=== PATIENT | female | born 1970 | race African-American/Black ===

== ENCOUNTER 2016-12-13 22:11 | Inpatient (IN) | payer OTHER, SELFPAY ==
[2016-12-13] MEDS ORDERED: Ondansetron HCl/PF 4 MG/2 ML Vial ONE (23:25)
[2016-12-14] MEDS ORDERED: Dextrose 50% Abboject 50 ML SYRINGE SLOW IVP PRN (00:24)
[2016-12-14] MEDS ORDERED: Promethazine HCl 25 MG/ML VIAL IM/IV PRN (00:24)
[2016-12-14] MEDS ORDERED: Guaifenesin DM 100-10/5 ML UDCUP PO PRN (00:24)
[2016-12-14] MEDS ORDERED: Dextrose 5% in Water 1,000 ML IV PRN (00:24)
[2016-12-14] MEDS ORDERED: Acetaminophen 325 MG TAB PO PRN (00:24)
[2016-12-14] MEDS ORDERED: Sodium Chloride 0.9% 1,000 ML IV SCH (00:30)
[2016-12-14 00:49] LABS: Acetaminophen Less than 6.0 mcg/mL (10.0-30.0); Salicylate Less than 8.0 mg/dL (15.0-30.0)
--- NOTE | 2016-12-14 01:22 | HP ---
REASON FOR ADMISSION: Epigastric pain, intractable nausea, and vomiting. HISTORY OF PRESENT ILLNESS: The patient gives history of waking up with epigastric pain. She felt nauseated and soon started to throw up multiple times. She tried taking her medication but threw up. She also developed palpitations. She went to [facility] from where she was transferred here. The patient states she has had an upper endoscopy done 2 or 3 months back here and did not have any ulcers then. The epigastric pain is 10/ 10 in intensity. There is no radiation of this pain. She has vomited nearly 10 times per patient, the last few times have been bilious. No complaints of constipation, fever, urinary symptoms including urgency or frequency. No complaints of PND or orthopnea. Has not had any fever, cough, or expectoration. PAST MEDICAL/SURGICAL HISTORY: History of hypertension, diabetes mellitus type 2, prior history of pancreatitis, GERD. She has diabetes from last 17 years, C- section x3, has had stent placed to RCA in 02/[address] Ríos x2. CURRENT MEDICATIONS: The patient is on aspirin 81 mg p.o. daily, Plavix 75 mg p.o. daily, Coreg 6.25 mg p.o. twice daily, lisinopril 10 mg p.o. daily, clonidine patch and tablets, Lantus 50 units subcutaneously at bedtime, and Humalog sliding scale. ALLERGIES: No known drug allergies. PERSONAL HISTORY: Smokes marijuana for her chronic nauseating feeling per patient. She quit smoking. Does not abuse alcohol. No other drugs per the patient. FAMILY HISTORY: Mother has history of heart failure. Father of lymphoma and its complications at the age of 64 years. REVIEW OF SYSTEMS: The following complete review of systems was negative, unless otherwise mentioned in the HPI or below: Constitutional: Weight loss or gain, ability to conduct usual activities. Skin: Rash, itching. Eyes: Double vision, pain. ENT/Mouth: Nose bleeding, neck stiffness, pain, tenderness. Cardiovascular: Palpitations, dyspnea on exertion, orthopnea. Respiratory: Shortness of breath, wheezing, cough, hemoptysis, fever or night sweats. Gastrointestinal: Poor appetite, abdominal pain, heartburn, nausea, vomiting, constipation, or diarrhea. Genitourinary: Urgency, frequency, dysuria, nocturia. Musculoskeletal: Pain, swelling. Neurologic/Psychiatric: Anxiety, depression. Allergy/Immunologic: Skin rash, bleeding tendency. PHYSICAL EXAMINATION: GENERAL: The patient is a 46-year-old female who is currently in distress from epigastric pain. She has received multiple doses of morphine and Toradol both in [facility] here. VITAL SIGNS: Blood pressure 146/94, pulse 100 per minute, respiratory rate 18 per minute, temperature 98.6 degrees Fahrenheit, saturating 97% on room air. NECK: Supple. No elevated JVD. HEENT: Eyes, Extraocular muscles intact. Pupils reacting to light. Oral cavity, mucous membranes are moist. No exudates or congestion. CARDIOVASCULAR SYSTEM: S1, S2 heard. Regular rhythm. RESPIRATORY SYSTEM: Air entry 2+ bilateral. No rales or rhonchi. ABDOMEN: Soft. Bowel sounds heard. There is epigastric tenderness. No rebound. Mostly, patient has voluntary guarding for deep palpation. EXTREMITIES: No peripheral edema or calf tenderness. VASCULAR SYSTEM: Peripheral pulses 1+ bilateral. No ischemic ulcerations or gangrene. CENTRAL NERVOUS SYSTEM: No gross focal deficits seen. The patient is alert, awake, oriented x3. PSYCHIATRIC SYSTEM: The patient's mood is euthymic. No hallucinations or delusions. LABORATORY DATA AND X-RAY FINDINGS: Please note all her labs were done at [facility]. Electrolytes are stable. BUN 9, creatinine 1.0, glucose 432. Albumin 4.4, lipase is 38, amylase 50. First set of troponin is 0.02. Second set done here on arrival was 0.04, CK-MB 3.0. H\T\H 13 and 39. EKG done shows sinus tachycardia at 103 beats per minute. There are signs of LVH. CLINICAL IMPRESSION AND PLAN: The patient will be admitted to telemetry with intractable nausea, vomiting, and epigastric pain with indeterminate troponin and prior history of 2 stents placed to right coronary artery. We will also obtain a urine drug screen in view of her history of chronic marijuana abuse for nausea per patient. We will continue her on aspirin, Plavix, Coreg, small dose of lisinopril, and clonidine as before. She will be on nitroglycerin paste half inch q. 8 hourly. We will obtain an echo with 2D Doppler and CT of the abdomen and pelvis without contrast. We will consult Dr. Ríos, her microsoft exchange architect, during the stay here. She will be on normal saline at 70 mL per hour. We will keep her n.p.o. until her nausea and vomiting resolve. She will be on Pepcid 20 mg IV q. 12 hourly. Please note the patient has had recent upper endoscopy done in 08/[address] Burak Bess. There is patchy gastritis seen in the fundus and biopsies have not shown Helicobacter pylori organism. We will continue to closely monitor her on telemetry. Please note the patient has had multiple narcotics given in the ER and needs to be closely monitored for respiratory depression. MTDD
[2016-12-14] MEDS: HumaLOG 300 UNITS/3 ML VIAL SC PRN ×3 (01:31→18:22)
[2016-12-14 02:49] LABS: Troponin I 0.034 ng/mL (< 0.028)
[2016-12-14] MEDS: Ondansetron HCl/PF 4 MG/2 ML Vial IVP PRN ×3 (05:22→18:30)
[2016-12-14] MEDS: traMADol HCl 50 MG TAB PO PRN ×3 (05:22→18:30)
[2016-12-14] MEDS: Nitroglycerin 2% Ointment 1 INCH/1 GM Packet TOP SCH ×3 (05:25→21:01)
[2016-12-14 06:07] LABS: #Basophils 0.1 thou/uL (0.0-0.2); #Lymphocytes 2.2 thou/uL (1.20-3.40); #Neutrophils 8.2 thou/uL (1.40-6.50); %Basophils 0.7 % (0.0-1.0); %Eosinophils 0.1 % (0.0-10.0); %Lymphocytes 19.2 % (21.0-51.0); %Monocytes 8.3 % (0.0-10.0); Hematocrit 37.5 % (36.0-47.0); Mean Platelet Volume 7.8 fL (7.4-10.4); Red Blood Cell (RBC) Count 4.62 mill/uL (4.20-5.40); White Blood Cell (WBC) Count 11.4 thou/uL (4.8-10.8)
[2016-12-14 06:27] LABS: Anion Gap 15 mmol/L (10-20); BUN (Urea Nitrogen) 19 mg/dL (7.0-18.7); Calc. Creatinine Clearance 53 mL/min (70-130); Carbon Dioxide 26 mmol/L (22-29); Chloride 94 mmol/L (98-107); Cholesterol 235 mg/dl (< 200 Desired); Estimated GFR-MDRD 38; LDL Cholesterol, Calculated 152 mg/dL
--- NOTE | 2016-12-14 08:21 | CT ---
CT OF THE ABODMEN AND PELVIS WITHOUT IV CONTRAST: Date: 12/14/16 INDICATION: Abdominal pain with a history of tubal ligation and . COMPARISON: Prior exam dated 08/09/16. FINDINGS: The lung bases are clear. Unopacified liver, pancreas, spleen, and adrenal glands are unremarkable. No definite renal or urete ral calculus evident. A small left mid renal cyst is stable. No free fluid or enlarged lymph nodes are evident. There are vascular calcifications noted involving the abdominal aorta. Unopacified uterus, bladder, rectum, and perirectal soft tissues are unremarkable. There are a few scattered diverticula involving the colon without evidence of active diverticulitis. There is a normal appendix in the right lower quadrant. There is an inflammation infiltration invol ving the subcutaneous fat overlying the lower abdomen, likely related to subcu injection. No definite acute osseous abnormality is evident. There is scattered degenerative and osteoarthritic change. IMPRESSION: No acute abnormality. POS: [facility]
[2016-12-14] MEDS ORDERED: FLU VACC QS2017-18 36 mo. & older 0.5 ML SYRINGE IM ONE (09:00)
[2016-12-14] MEDS: Enoxaparin Sodium 40 MG/0.4 ML SYRINGE SC SCH (09:32)
[2016-12-14] MEDS: Insulin Detemir 100 UNITS/ML 15 UNITS in Pre-Filled Syringe 1 EACH SC SCH ×2 (09:33→20:49)
[2016-12-14] MEDS: Docusate 100 MG CAP PO SCH ×2 (09:35→20:48)
[2016-12-14] MEDS: Lisinopril 10 MG TAB PO SCH (09:35)
[2016-12-14] MEDS: Carvedilol 6.25 MG TAB PO SCH ×2 (09:38→20:47)
[2016-12-14] MEDS: Clopidogrel Bisulfate 75 MG TAB PO SCH (09:38)
[2016-12-14] MEDS: Aspirin 325 MG TAB PO SCH (09:39)
[2016-12-14] MEDS: cloNIDine HCl 0.1 MG TAB PO SCH ×2 (09:39→20:47)
[2016-12-14] MEDS: Famotidine/PF 20 mg/2ml Vial SLOW IVP SCH ×2 (10:01→21:02)
[2016-12-14 12:22] LABS: Anion Gap 14 mmol/L (10-20); BUN (Urea Nitrogen) 22 mg/dL (7.0-18.7); Calc. Creatinine Clearance 56 mL/min (70-130); Calcium 8.9 mg/dL (7.8-10.44); Carbon Dioxide 26 mmol/L (22-29); Chloride 94 mmol/L (98-107); Estimated GFR-MDRD 40
--- NOTE | 2016-12-14 13:56 | PDOC.PN ---
- Subjective Encounter Start Date: 12/14/16 Encounter Start Time: 13:45 Subjective: f/u epigastric pain and N/V. No emesis in 24h. Planned heart cath -: cancelled today due to elevated creatinine. No new complaints. - Objective Resuscitation Status: Resuscitation Status FULL:Full Resuscitation MAR Reviewed: Yes Vital Signs & Weight: Vital Signs (12 hours) Temp Pulse Resp BP BP Pulse Ox 12/14/16 09:39 136/85 12/14/16 09:38 136/85 12/14/16 09:35 136/85 12/14/16 08:25 98.3 F 88 18 136/85 98 12/14/16 08:00 98.2 F 88 20 98 12/14/16 04:00 98.2 F 88 20 143/82 H 98 Weight Weight 182 lb 4.8 oz I&O: 12/13/16 12/14/16 12/15/16 06:59 06:59 06:59 Intake Total 1150 Output Total 50 Balance 1100 Result Diagrams: 12/14/16 05:19 12/14/16 11:50 Additional Labs: Accuchecks 12/14/16 12/14/16 05:21 01:14 POC Glucose 327 H 410 H Laboratory Tests 12/13/16 12/13/16 12/14/16 23:07 23:07 02:05 Sodium Potassium BUN Creatinine Troponin I 0.040 H 0.034 H Triglycerides Cholesterol LDL Cholesterol, Calc HDL Cholesterol Salicylates Less than 8.0 L Acetaminophen Less than 6.0 L Plasma Alcohol Less than 10 12/14/16 05:19 Sodium 132 L Potassium 3.2 L BUN 19 H Creatinine 1.76 H Troponin I Triglycerides 183 H Cholesterol 235 H LDL Cholesterol, Calc 152 HDL Cholesterol 46 Salicylates Acetaminophen Plasma Alcohol Radiology Reviewed by me: Yes (CT A/P - negative) EKG Reviewed by me: Yes (Tele - SR) Phys Exam - Physical Examination Constitutional: NAD HEENT: PERRLA, oral pharynx no lesions Neck: no JVD, supple Respiratory: no wheezing, clear to auscultation bilateral Cardiovascular: RRR Gastrointestinal: soft, non-tender, no distention, positive bowel sounds Musculoskeletal: no edema, pulses present Neurological: normal sensation, moves all 4 limbs Psychiatric: A&O x 3 Skin: normal turgor, cap refill <2 seconds Dx/Plan - Plan DVT proph w/SCDs Stable overall -: continue IVF's -: Avoid nephrotoxic meds -: Plan on LHC in am * N/V - resolving, continue supportive mgmt, IVF's, likely drug-induced vs component of gastroparesis * Elevated Troponin I - repeat LHC when creatinine improved and can tolerate contrast study * Cannabis Use - bereavement counselor regarding risk of use and potentially creating more nause and emesis * CAD s/p stents x 2 - stable overall, see above * LETY - avoid nephrotoxic meds and contrast media, continue IVF's * DM II - ISS, ADA, resume home medication regimen * AM lab: BMP * 2D Echo pending
--- NOTE | 2016-12-14 15:47 | CON ---
DATE OF CONSULTATION: 12/14/2016 REASON FOR CONSULTATION: Nausea, vomiting, abdominal pain. REFERRING PROVIDER: Dr. Fiorella Garces. HISTORY OF PRESENT ILLNESS: Ms. Walter is a 46-year-old woman who I have seen and evaluated in the ast. She underwent stent placement in 02/2016. At that time, she is also complaining of nausea, vo miting, and abdominal discomfort. Per her history, she states she did well after stent implantation without symptoms, although after reviewing her records, it appeared she had readmission one week la [facility] for similar symptoms. She also had similar symptoms in June and July of 2016. She states her abdomen is pain to touch. She states she had abdominal pain followed by nausea and v omiting. She underwent CT scan of the abdomen today that was unremarkable. PAST MEDICAL HISTORY: As above including pancreatitis, acid reflux, diabetes mellitus. HOME MEDICATIONS: Include aspirin, Plavix, clonidine, lisinopril, Coreg, Lantus. ALLERGIES: None. FAMILY HISTORY: Negative for CAD. REVIEW OF SYSTEMS: Ten-point review of systems is reviewed and as above, otherwise negative. PHYSICAL EXAMINATION: GENERAL: Patient is a pleasant male/female who is in no acute distress. The patient appears her st ated age. VITAL SIGNS: Blood pressure 136/85, pulse 88, temperature 98.3. NEUROLOGIC: The patient is alert and oriented times 3 with no focal neurologic deficits. HEENT: Sclerae without icterus. Mouth has moist mucous membranes with normal pallor. NECK: No JVD. Carotid upstroke brisk. No bruits bilaterally. LUNGS: Clear to auscultation with unlabored respirations. BACK: No scoliosis or kyphosis. CARDIAC: Regular rate and rhythm with normal S1 and S2. No S3 or S4 noted. No significant rubs, m urmurs, thrills, or gallops noted throughout the precordium. PMI is not displaced. There is no par asternal heave. ABDOMEN: Soft, nontender, nondistended. No peritoneal signs present. No hepatosplenomegaly. No a bnormal striae. EXTREMITIES: 2+ femoral and 2+ dorsalis pedis pulses. No cyanosis, clubbing, or edema. SKIN: No gross abnormalities. PERTINENT LABORATORY AND DIAGNOSTIC DATA: Peak troponin 0.04, creatinine 1.76. GFR 38. EKG normal sinus rhythm, normal EKG. IMPRESSION: 1. Nausea, vomiting, abdominal pain. 2. Coronary artery disease. 3. Status post stent placement. RECOMMENDATIONS: Ms. Walter's previous history is somewhat difficult and complicated to ascertain. She did have a stent placed with similar symptoms back in February. She has had several admissions for similar symptoms since. Upon trying to differentiate between repeat angiography versus noninvas basilio stress study, it appears her troponin in 02/2016 was at 0.4, which is felt to be abnormal. Mult iple admissions, since her troponin has been in the indeterminate range. Her creatinine is also harjeet vated, likely due to volume contraction. At this point, we would recommend a noninvasive stress kaleb dy to assess for any areas of ischemia. I also discussed the option of coronary angiography with po ssible PCI. I discussed the procedure in full detail with Ms. Walter. I discussed the procedure in full detail with the patient. The risks of the procedure were also dis cussed. The risks of the procedure include but are not limited to the following: , stroke, LA , need for emergency surgery, loss of limb, bleeding, and infection, as well as a reaction to the dy e causing kidney failure and needing long-term dialysis. I also discussed the risks of PCI to inclu de all of the above including coronary dissection and perforation in addition to acute stent thrombo sis and restenosis. All questions were answered. Given the above, she has decided to proceed with a noninvasive stress study. Further recommendations pending the above.
[2016-12-14] MEDS: Sodium Chloride 0.9% 1,000 ML IV SCH ×2 (18:22)
[2016-12-14 21:46] LABS: Amphetamine Not Detected (NotDetected); Methadone Not Detected (NotDetected); Methamphetamine Not Detected (NotDetected)
[2016-12-15] MEDS: Ondansetron HCl/PF 4 MG/2 ML Vial IVP PRN ×2 (01:07→06:35)
[2016-12-15] MEDS: Sodium Chloride 0.9% 1,000 ML IV SCH ×4 (01:08→21:48)
[2016-12-15] MEDS: traMADol HCl 50 MG TAB PO PRN ×3 (01:08→21:27)
[2016-12-15] MEDS: Nitroglycerin 2% Ointment 1 INCH/1 GM Packet TOP SCH ×3 (06:36→21:31)
[2016-12-15] MEDS: Famotidine/PF 20 mg/2ml Vial SLOW IVP SCH ×2 (09:00→21:30)
[2016-12-15] MEDS: Lisinopril 10 MG TAB PO SCH (09:56)
[2016-12-15] MEDS: cloNIDine HCl 0.1 MG TAB PO SCH ×2 (09:59→21:30)
[2016-12-15] MEDS: Docusate 100 MG CAP PO SCH ×2 (09:59→21:30)
[2016-12-15] MEDS: Insulin Detemir 100 UNITS/ML 15 UNITS in Pre-Filled Syringe 1 EACH SC SCH ×2 (10:00→21:31)
[2016-12-15] MEDS: HumaLOG 300 UNITS/3 ML VIAL SC PRN ×4 (10:00→21:32)
--- NOTE | 2016-12-15 10:53 | PDOC.PN ---
- Subjective Encounter Start Date: 12/15/16 Encounter Start Time: 07:20 Pt seen for followup re: epigastric pain. Reports pain is better. No nausea or vomiting. No chest pain - Objective Resuscitation Status: Resuscitation Status FULL:Full Resuscitation MAR Reviewed: Yes Vital Signs & Weight: Vital Signs (12 hours) Temp Pulse Resp BP BP Pulse Ox 12/15/16 09:59 155/86 H 12/15/16 09:56 155/86 H 12/15/16 04:00 98.5 F 69 18 117/56 L 97 Weight Admit Weight 182 lb 4.804 oz Weight 182 lb 4.804 oz I&O: 12/14/16 12/15/16 12/16/16 06:59 06:59 06:59 Intake Total 1150 3276 Output Total 50 780 Balance 1100 2496 Result Diagrams: 12/14/16 05:19 12/14/16 11:50 Additional Labs: Accuchecks 12/15/16 12/15/16 12/14/16 05:30 00:16 17:53 POC Glucose 226 H 266 H 346 H 12/14/16 12:04 POC Glucose 287 H EKG Reviewed by me: Yes (Tele: NSR) Phys Exam - Physical Examination Constitutional: NAD HEENT: moist MMs, oral pharynx no lesions Neck: supple Respiratory: no wheezing, no rales, no rhonchi, clear to auscultation bilateral Cardiovascular: RRR, no rub Gastrointestinal: soft, no distention, positive bowel sounds Musculoskeletal: pulses present Neurological: non-focal, moves all 4 limbs Psychiatric: normal affect, A&O x 3 Skin: no rash, normal turgor, cap refill <2 seconds Dx/Plan - Plan * . DVT proph w/SCDs * Epigastric pain - Improved * Elevated Troponin I - Plan for stress test * Cannabis Use - counseled re; discontinuing * CAD s/p stents x 2 - appreciate cardiology input * LETY - avoid nephrotoxic * DM II - continue ISS * Review of Systems - Review of Systems Constitutional: negative: Fever, Chills, Sweats, Weakness, Malaise Respiratory: negative: Cough, Dry, Shortness of Breath, Hemoptysis, SOB with Excertion, Pleuritic Pain, Sputum, Wheezing Cardiovascular: negative: Chest Pain, Palpitations, Orthopnea, Paroxysmal Noc. Dyspnea, Edema, Light Headedness Gastrointestinal: negative: Nausea, Vomiting, Abdominal Pain, Diarrhea, Constipation, Melena, Hematochezia Genitourinary: Other. negative: Dysuria, Frequency, Incontinence, Hematuria, Retention - Medications/Allergies Allergies/Adverse Reactions: Allergies Allergy/AdvReac Type Severity Reaction Status Date / Time No Known Allergies Allergy Verified 08/08/16 05:45 Medications: Current Medications Acetaminophen (Tylenol) 650 mg PO Q4H PRN PRN Reason: Headache/Fever or Pain Aspirin (Aspirin) 325 mg PO DAILY [facility] Last Admin: 12/14/16 09:39 Dose: 325 mg Carvedilol (Coreg) 6.25 mg PO BID [facility] Last Admin: 12/14/16 20:47 Dose: 6.25 mg Clonidine HCl (Catapres) 0.1 mg PO BID [facility] Last Admin: 12/15/16 09:59 Dose: 0.1 mg Clopidogrel Bisulfate (Plavix) 75 mg PO DAILY [facility] Last Admin: 12/14/16 09:38 Dose: 75 mg Dextrose/Water (Dextrose 50%) 25 gm SLOW IVP PRN PRN PRN Reason: Hypoglycemia Docusate Sodium (Colace) 100 mg PO BID [facility] Last Admin: 12/15/16 09:59 Dose: 100 mg Enoxaparin Sodium (Lovenox) 40 mg SC 0900 [facility] Last Admin: 12/14/16 09:32 Dose: 40 mg Famotidine (Pepcid) 20 mg SLOW IVP Q12HR [facility] Last Admin: 12/14/16 21:02 Dose: 20 mg Glucagon (Glucagon) 1 mg IM PRN PRN PRN Reason: Hypoglycemia Guaifenesin/Dextromethorphan (Robitussin Dm) 15 ml PO Q4H PRN PRN Reason: Cough Dextrose/Water (D5w) 1,000 mls @ 0 mls/hr IV .Q0M PRN; As Directed PRN Reason: Hypoglycemia Insulin Detemir 15 units/ (Miscellaneous Medication) 0.15 mls @ 0 mls/hr SC BID [facility] Last Admin: 12/15/16 10:00 Dose: 0.15 mls Sodium Chloride (Normal Saline 0.9%) 1,000 mls @ 150 mls/hr IV .Q6H40M [facility] Last Admin: 12/15/16 09:54 Dose: 1,000 mls Insulin Human Lispro (Humalog) 0 units SC .MODERATE SLIDING SC PRN PRN Reason: Moderate Correctional Scale Last Admin: 12/15/16 10:00 Dose: 4 unit Insulin Human Lispro (Humalog) 0 units SC .BEDTIME SLIDING SC PRN; Protocol PRN Reason: BEDTIME SLIDING SCALE Last Admin: 12/14/16 01:31 Dose: 5 unit Lisinopril (Zestril) 10 mg PO DAILY [facility] Last Admin: 12/15/16 09:56 Dose: 10 mg Morphine Sulfate (Morphine Sulfate) 2 mg SLOW IVP Q4H PRN PRN Reason: Chest Pain/BP Elevations Nitroglycerin (Nitro-Bid 2% Ointment) 0.5 inch TOP Q8HR [facility] Last Admin: 12/15/16 06:36 Dose: 0.5 inch Ondansetron HCl (Zofran) 4 mg IVP Q6H PRN PRN Reason: Nausea/Vomiting Last Admin: 12/15/16 06:35 Dose: 4 mg Promethazine HCl (Phenergan) 25 mg IM/IV Q6H PRN PRN Reason: Nausea/Vomiting Tramadol HCl (Ultram) 50 mg PO Q6H PRN PRN Reason: pain Last Admin: 12/15/16 01:08 Dose: 50 mg
[2016-12-15] MEDS ORDERED: ADENOSINE 60 MG/20 ML VIAL ONE (14:32)
[2016-12-15] MEDS: Aspirin 325 MG TAB PO SCH (15:51)
[2016-12-15] MEDS: Carvedilol 6.25 MG TAB PO SCH ×2 (15:52→21:30)
[2016-12-15] MEDS: Clopidogrel Bisulfate 75 MG TAB PO SCH (15:52)
[2016-12-15] MEDS: Enoxaparin Sodium 40 MG/0.4 ML SYRINGE SC SCH (15:54)
[2016-12-16] MEDS: Sodium Chloride 0.9% 1,000 ML IV SCH (03:36)
[2016-12-16] MEDS: traMADol HCl 50 MG TAB PO PRN (04:12)
[2016-12-16] MEDS: Nitroglycerin 2% Ointment 1 INCH/1 GM Packet TOP SCH ×2 (05:43→13:59)
[2016-12-16] MEDS: Ondansetron HCl/PF 4 MG/2 ML Vial IVP PRN (06:16)
[2016-12-16] MEDS: Lisinopril 10 MG TAB PO SCH (08:38)
[2016-12-16] MEDS: Aspirin 325 MG TAB PO SCH (08:38)
[2016-12-16] MEDS: cloNIDine HCl 0.1 MG TAB PO SCH ×2 (08:38→19:56)
[2016-12-16] MEDS: Clopidogrel Bisulfate 75 MG TAB PO SCH (08:39)
[2016-12-16] MEDS: Carvedilol 6.25 MG TAB PO SCH ×2 (10:09→19:56)
[2016-12-16] MEDS: Docusate 100 MG CAP PO SCH ×2 (10:12→19:56)
[2016-12-16] MEDS: Enoxaparin Sodium 40 MG/0.4 ML SYRINGE SC SCH ×2 (10:13→13:57)
[2016-12-16] MEDS: Famotidine/PF 20 mg/2ml Vial SLOW IVP SCH (10:16)
[2016-12-16] MEDS: Insulin Detemir 100 UNITS/ML 15 UNITS in Pre-Filled Syringe 1 EACH SC SCH ×2 (10:16→13:58)
[2016-12-16 12:12] VITALS: BMI 28.1
--- NOTE | 2016-12-16 13:00 | NM ---
EXAM: NUCLEAR MEDICINE CARDIAC STRESS WITH EF AND WALL MOTION: HISTORY: Chest pain. Coronary artery disease. COMPARISON: None. TECHNIQUE: The patient is administered 31.20 mCi of Technetium 99m sestamibi for stress imaging and 29 mCi of T echnetium 99m sestamibi for rest imaging. Two-day protocol is utilized. FINDINGS: There is a fixed defect in the inferior cardiac wall. No evidence of reversibility. TID is 0.95. End-diastolic volume is 143 mL. End-systolic volume is 67 mL. CARDIAC GATING: Normal motion and thickening. Ejection fraction is 54%. IMPRESSION: Scar in the inferior wall. No evidence of reversibility. POS: [facility]
--- NOTE | 2016-12-16 13:21 | PRG ---
DATE OF SERVICE: 12/16/2016 Ms. Walter feels better. She has much less nausea and vomiting present. Her blood pressure remains elevated. Her recent stress study showed a scar to the inferior wall, no ischemia present. LVEF di d appear normal. PHYSICAL EXAMINATION: VITAL SIGNS: Blood pressure 183/87, pulse 74, temperature afebrile. LUNGS: Clear to auscultation. CARDIAC: Regular rate and rhythm. ABDOMEN: Soft, tender to palpation. EXTREMITIES: No significant edema. Stress study as above. IMPRESSION: 1. Nausea, vomiting and abdominal pain. 2. Coronary artery disease. 3. Status post stent placement. RECOMMENDATIONS: Ms. Walter's symptoms are not felt to be consistent with acute coronary syndrome. Her EKG appears to be within normal limits and her enzymes have been negative. She has had multiple hospitalizations for similar symptoms. She showed a scar to the inferior wall with no ischemia pre sent and a normal LVEF. At this point, I recommend conservative therapy. Continue aspirin and Plav ix in addition to carvedilol. Add Norvasc 5 mg 1 p.o. now for elevated blood pressure. Once blood pressure is stable, it would be okay from my standpoint to discharge home.
--- NOTE | 2016-12-16 15:21 | DIS ---
DATE OF ADMISSION: 12/14/2016 DATE OF DISCHARGE: 12/16/2016 PRIMARY CARE PROVIDER: [facility]. DISCHARGE DIAGNOSES: 1. Epigastric pain, resolved. 2. Nausea and vomiting, resolved. 3. Nuclear stress test showing ejection fraction 54%, scar in the inferior wall with no evidence of reversibility. CONDITION OF PATIENT AT THE TIME OF DISCHARGE: Stable. I assessed Ms. Walter on the day of discharg e. She denies any chest pain or shortness of breath. Vital signs are stable. S1 and S2 are heard, regular. Lungs are clear to auscultation bilaterally. DISCHARGE MEDICATIONS: Aspirin 81 mg daily, carvedilol 25 mg 2 times a day, Plavix 75 mg daily, Sebastien tus insulin 50 units at bedtime, Protonix 40 mg daily, amlodipine 10 mg daily, clonidine 0.3 mg 3 ti mes a day, tramadol 50-100 mg every 6 hours as needed. HOSPITAL COURSE: Ms. Walter is a pleasant 43-year-old lady who was admitted to [facility] on 12/14/2016 for epigastric pain, nausea, and vomiting. CT scan of the abdomen and pe lvis at the time of admission did not reveal any acute intraabdominal or intrapelvic abnormality. S he was seen by Cardiology Service. She underwent nuclear stress test, with the findings as above. She also had 2D echocardiogram, which showed left ventricular ejection fraction estimated at 55%-60% , and findings suggestive of diastolic dysfunction. Her symptoms resolved. During this hospitalization, her blood pressure was high. This was most lik misa because her home medications were started at lower doses for the antihypertensives. She is advi sed to resume her home dose of antihypertensives and check her blood pressure and heart rate 3 times a day and shows the readings to her primary care provider in 3-5 days. Many thanks for allowing me to participate in your patient's care. Please feel free to contact me w ith any questions or concerns. LABORATORY DATA: On 12/14/2016, she had a white count of 11,400, hemoglobin 12.2, and platelet coun t 361. She also had sodium 131, potassium 3.1, which was replaced, creatinine 1.66. Her creatinine is being rechecked prior to discharge. DISCHARGE DESTINATION: Home. TOTAL AMOUNT OF TIME SPENT COORDINATING THIS DISCHARGE: 33 minutes. ADDENDUM: LABORATORY DATA: Ms. Walter's labs on the day of discharge show sodium 135, potassium 3.8, creatinin e 1.05, white count 4,500, hemoglobin 11.2, and platelet count 282,000. She is advised to return to work as tolerated on 12/19/2016.
[2016-12-16 15:39] LABS: #Basophils 0.1 thou/uL (0.0-0.2); #Eosinphils 0.1 thou/uL (0.0-0.7); #Lymphocytes 1.7 thou/uL (1.20-3.40); #Monocytes 0.5 thou/uL (0.11-0.59); #Neutrophils 2.2 thou/uL (1.40-6.50); %Basophils 1.1 % (0.0-1.0); %Eosinophils 1.3 % (0.0-10.0); %Lymphocytes 37.6 % (21.0-51.0); %Monocytes 10.3 % (0.0-10.0); Hematocrit 34.1 % (36.0-47.0); Red Blood Cell (RBC) Count 4.16 mill/uL (4.20-5.40); White Blood Cell (WBC) Count 4.5 thou/uL (4.8-10.8)
[2016-12-16 15:56] LABS: Anion Gap 10 mmol/L (10-20); BUN (Urea Nitrogen) 11 mg/dL (7.0-18.7); Calc. Creatinine Clearance 92 mL/min (70-130); Calcium 8.7 mg/dL (7.8-10.44); Carbon Dioxide 28 mmol/L (22-29); Chloride 101 mmol/L (98-107); Estimated GFR-MDRD 69
[2016-12-16 21:30] VITALS: BP 172/61; TEMP 96.4
== END 2016-12-16 19:58 | disposition home or self-care (01) | DRG 392 ==
LOC: ERS 22:11 → 2NO 23:52
PROVIDERS: ADMIT Internal Medicine; ATTEND Internal Medicine
PROC: 4A023N7 Measurement of Cardiac Sampling and Pressure, Left Heart, Percutaneous Approach (ICD-10-PCS; principal; 2016-12-13)
PROC: B2111ZZ Fluoroscopy of Multiple Coronary Arteries using Low Osmolar Contrast (ICD-10-PCS; 2016-12-13)
PROC: 4A02XM4 Measurement of Cardiac Total Activity, External Approach (ICD-10-PCS; 2016-12-16)
DX: R10.13 Epigastric pain (principal); N17.9 Acute kidney failure, unspecified; I10 Essential (primary) hypertension; E11.9 Type 2 diabetes mellitus without complications; I25.10 Atherosclerotic heart disease of native coronary artery without angina pectoris; I51.89 Other ill-defined heart diseases; F12.10 Cannabis abuse, uncomplicated; R11.2 Nausea with vomiting, unspecified; R79.89 Other specified abnormal findings of blood chemistry; Z95.5 Presence of coronary angioplasty implant and graft; Z82.49 Family history of ischemic heart disease and other diseases of the circulatory system; Z80.7 Family history of other malignant neoplasms of lymphoid, hematopoietic and related tissues
CPT/HCPCS: 36415; 36416; 74176; 78452; 80048; 80061; 80306; 80307; 84484; 85025; 90471; 90682; 90732; 93005; 93017; 93306; 94760; 96374; 96375; A9500; G0008; G0009; J0153; J1650; J1815; J2270; J2405; Q2036; S0028

== ENCOUNTER 2018-11-23 11:01 | Inpatient (IN) | payer SELFPAY ==
[2018-11-23] MEDS ORDERED: niCARdipine 20MG In NaCl 20 MG/200 ML BAG ONE ×2 (11:24→14:28)
[2018-11-23] MEDS ORDERED: Enoxaparin Sodium 100 MG/ML SYRINGE ONE (11:38)
[2018-11-23] MEDS ORDERED: Lorazepam 2 MG/ML VIAL ONE (11:38)
[2018-11-23] MEDS ORDERED: Ondansetron PF 4 MG/2 ML Vial ONE (11:38)
[2018-11-23 12:41] LABS: CKMB 5.9 ng/mL (0-6.6)
[2018-11-23 15:35] LABS: Critical Call Chem Troponin I RESULT DECREASING
[2018-11-23] MEDS ORDERED: Ondansetron ODT 4 MG TAB PO PRN (16:55)
[2018-11-23] MEDS ORDERED: Dextrose 50% Abboject 50 ML SYRINGE SLOW IVP PRN (17:02)
[2018-11-23] MEDS ORDERED: Dextrose 5% in Water 1,000 ML IV PRN (17:02)
[2018-11-23 17:25] VITALS: BMI 28.6
[2018-11-23] MEDS: Ondansetron PF 4 MG/2 ML Vial IVP PRN (18:02)
[2018-11-23 18:46] LABS: Critical Call Chem Troponin I RESULT DECREASING; Troponin I 0.559 ng/mL (< 0.028)
[2018-11-23] MEDS ORDERED: Lidocaine 2% Viscous Solution 10 ML, Aluminum & Magnesium Hydroxide 30 ML SSW SCH (19:00)
[2018-11-23] MEDS: HumaLOG 300 UNITS/3 ML VIAL SC PRN ×2 (19:14→22:28)
[2018-11-23] MEDS: niCARdipine 25 MG in Sodium Chloride 0.9% 250 ML 240 ML IVPB SCH ×2 (20:23→22:13)
[2018-11-23] MEDS ORDERED: Famotidine 20 MG TAB PO SCH (21:00)
[2018-11-23] MEDS: Insulin Glargine 20 UNITS in Pre-Filled Syringe 1 EACH SC SCH (22:28)
[2018-11-24] MEDS: niCARdipine 50 MG in Sodium Chloride 0.9% 250 ML 230 ML IVPB SCH ×5 (00:01→16:38)
[2018-11-24] MEDS: Ondansetron PF 4 MG/2 ML Vial IVP PRN ×5 (00:14→21:25)
--- NOTE | 2018-11-24 00:58 | HP ---
CHIEF COMPLAINT: Nausea and vomiting. HISTORY OF PRESENT ILLNESS: This patient is a 48-year-old female, who was transferred from [facility]. She has a history of cocaine abuse, coronary artery disease, hypertensive urgencies and noncompliance with medication and followup. She reports that she has no primary care provider, although she appears to be getting prescriptions, fills fairly regularly. The patient admitted to using cocaine the day prior and presented to the emergency department with nausea, vomiting, some epigastric abdominal pain. There, her workup was notable for severe hypertension with systolics reported in the range of 260 and diastolics in the range of 160. The patient was started on Cardene drip and transferred to our facility here. Her EKG did not show significant ischemic changes, but chronic left ventricular hypertrophy. Drug screen was positive for THC, cocaine, and opiates. The remainder of her workup was negative with the exception of a troponin of 0.8. The patient has had subsequent troponins here, which have been actually on the decline. She is now being admitted to the ICU for a Cardene drip. She continues to report some epigastric discomfort, but not having any chest pain at this time. She still reports some nausea. REVIEW OF SYSTEMS: Prior to today, the patient reports negative review of systems. She appears to be possibly still mildly encephalopathic, so the review of systems is not entirely reliable, but all systems reviewed were negative other than the positives and negatives noted in the history of present illness. PAST MEDICAL HISTORY: Notable for hypertension, diabetes mellitus, generally poorly controlled, history of coronary artery disease with single-vessel disease of the LAD, status post stents by Dr. Ríos in 2016. She also indicated history of MS; however, there is nothing in her prior records to suggest that. She had an MRI performed in 2016. which showed a small focal lesion in the posterior limb of the right internal capsule at its junction with the right thalamus evidence for subacute infarction. She also had several tiny scattered white matter signal abnormalities, a few mm in size, favored to represent mild chronic ischemic changes due to microvascular atherosclerosis and MS was less likely. She also had a history of carotid Dopplers performed in 2016, which showed no hemodynamically significant stenosis. CTA showed no significant stenosis. The patient also had prior admissions similar to these episodes in 2017, she presented similarly, at that time, negative CT of the abdomen. FAMILY HISTORY: Strong family history of stroke in both parents. PAST SURGICAL HISTORY: x2, coronary stents in the LAD. SOCIAL HISTORY: The patient smokes modestly. She reports occasional marijuana use, which she says she uses for nausea. She is somewhat vague on her history of alcohol use. She has denied it in the past. She also has cocaine abuse with prior admissions with a testing positive for that. She reports the last time she used was yesterday. ALLERGIES: NONE. CURRENT MEDICATIONS: Based on the refills I noted in the record system, she has most recently filled; 1. Pregabalin 150 mg b.i.d. 2. Tylenol with codeine 300/30, filled on 10/30. 3. Metoprolol 100 mg b.i.d. 4. Clonidine 0.3 mg t.i.d. 5. Lantus 40 units subcu b.i.d. PHYSICAL EXAMINATION: VITAL SIGNS: Most recent documented BP is 193/99, pulse 123, respirations 24, O2 saturation 99% on room air. GENERAL APPEARANCE: Age-appropriate female, in no distress. She is sleepy, but will awaken when spoken to. She is otherwise generally appropriate and cooperative. HEENT: PERRL. She has no OP lesions. NECK: Supple and symmetric. HEART: Hyperdynamic, tachycardic without murmurs. LUNGS: Clear to auscultation bilaterally with good chest wall expansion and air exchange. ABDOMEN: Soft and nondistended with positive bowel sounds. She has some mild epigastric tenderness across the upper abdomen and no guarding. EXTREMITIES: There is no cyanosis, clubbing, or edema. She has palpable dorsalis pedis and posterior tibial pulses bilaterally. PSYCHIATRIC: Again, the patient is somewhat somnolent when awake. She appears to have normal affect and behavior. NEUROLOGIC: No focal deficits. LABORATORY DATA: The only repeat labs from here are troponin is 0.651 and 0.60. IMPRESSION AND PLAN: 1. Hypertensive emergency. The patient is on a Cardene drip and admitted to the ICU. She has a prior history of similar findings thought to be related to her ongoing cocaine abuse and potentially noncompliance with her medications. She has improved reasonably at this point with the Cardene drip. We will consider resuming her p.o. beta santiago in the morning once she is metabolized of the cocaine. In the interim, just continue with Cardene drip. 2. Elevated troponins. This appears to be more consistent with [id number]-EA-[id number] elevation myocardial infarction type 2 with demand ischemia. Her troponins are actually trending downward. However, given her history of coronary artery disease, we will go ahead and consult Cardiology. She has been given a therapeutic dose of Lovenox in the emergency department. Given the downward trend, however, we will not continue with that, only with prophylactic doses. We will ensure she gets an aspirin. 3. Uncontrolled diabetes mellitus. The patient's blood sugars are in the 350 range. We will do serial Accu-Cheks and sliding scale. We will give her Lantus that it appears she has been filling at the pharmacy only. I am going to give her half doses at 20 mg b.i.d. of the Lantus given her nausea and epigastric pain until we are sure she is going to be able to take adequate amounts of p.o. 4. Epigastric tenderness. We will cover with PPI. She has already received a dose in the ER. 5. Nausea, likely related to the hypertensive encephalopathy. 6. Ongoing cocaine abuse, likely source of the patient's hypertensive urgency. The patient has indicated that her children and family are unaware of her drug abuse and wants to ensure that she stays away and may need some additional counseling when she is not in the acute phase. Job ID: [id number]
[2018-11-24] MEDS: HumaLOG 300 UNITS/3 ML VIAL SC PRN ×3 (05:59→18:30)
[2018-11-24 06:32] LABS: ALT (SGPT) 11 U/L (8-55); AST (SGOT) 21 U/L (5-34); Albumin 3.8 g/dL (3.5-5.0); Alkaline Phosphatase 99 U/L (40-150); Anion Gap 14 mmol/L (10-20); BUN (Urea Nitrogen) 13 mg/dL (7.0-18.7); Bilirubin, Total 0.8 mg/dL (0.2-1.2); Calc. Creatinine Clearance 84 mL/min (70-130); Calcium 8.8 mg/dL (7.8-10.44); Carbon Dioxide 23 mmol/L (22-29); Chloride 97 mmol/L (98-107); Estimated GFR-MDRD 70; Globulin 3.2 g/dL (2.4-3.5); Glucose 304 mg/dL (70-105); Lipase 103 U/L (8-78); Potassium 3.3 mmol/L (3.5-5.1); Sodium 131 mmol/L (136-145)
[2018-11-24 07:55] LABS: #Basophils 0.1 thou/uL (0.0-0.2); #Lymphocytes 1.3 thou/uL (1.20-3.40); #Monocytes 0.8 thou/uL (0.11-0.59); #Neutrophils 9.2 thou/uL (1.40-6.50); %Basophils 0.5 % (0.0-1.0); %Eosinophils 0.4 % (0.0-10.0); %Lymphocytes 11.1 % (21.0-51.0); %Monocytes 6.9 % (0.0-10.0); %Neutrophils 81.1 % (42.0-75.0); Hemoglobin 13.3 g/dL (12.0-16.0); Mean Corpuscular HGB CONC 32.4 g/dL (32.0-36.0); Mean Corpuscular Hemoglobin 27.5 pg (27.0-31.0); Mean Corpuscular Volume 85.1 fL (78.0-98.0); Mean Platelet Volume 9.7 fL (7.4-10.4); Platelet Count 214 thou/uL (130-400); Red Blood Cell (RBC) Count 4.84 mill/uL (4.20-5.40); White Blood Cell (WBC) Count 11.4 thou/uL (4.8-10.8)
[2018-11-24] MEDS: Metoprolol Tartrate 100 MG TAB PO SCH ×2 (08:24→19:53)
[2018-11-24] MEDS: Enoxaparin Sodium 40 MG/0.4 ML SYRINGE SC SCH (08:24)
[2018-11-24] MEDS: Insulin Glargine 20 UNITS in Pre-Filled Syringe 1 EACH SC SCH ×2 (08:58→19:52)
[2018-11-24] MEDS ORDERED: Amlodipine 5 MG TAB PO SCH (12:45)
[2018-11-24] MEDS ORDERED: Hydrochlorothiazide 25 MG TAB PO SCH (12:45)
[2018-11-24] MEDS ORDERED: diphenhydrAMINE 50 MG/ML VIAL IVP PRN (13:10)
[2018-11-24] MEDS ORDERED: Potassium Chloride 20 MEQ TAB PO SCH (13:15)
[2018-11-24] MEDS ORDERED: Metoclopramide HCl 10 MG/2 ML VIAL IVP SCH (13:15)
--- NOTE | 2018-11-24 13:33 | CON ---
DATE OF CONSULTATION: 11/24/2018 REASON FOR CONSULTATION: 1. Malignant hypertension. 2. Elevated troponin. HISTORY OF PRESENT ILLNESS: Ms. Walter is a 48-year-old woman, whom I have seen and evaluated in the past. She has a history of CAD, status post stent placement. She has had issues with noncompliance in the past, although she states recently she has been compliant. She recently presented with increased shortness of breath and malignant hypertension. She also presented with nausea and vomiting. No chest pain or pressure noted. No other ameliorating, exacerbating, or precipitating factors present. Blood pressure was in the 260/160 range. She was placed on IV medication for blood pressure management. Upon my arrival, the patient appeared stable. Blood pressure is 120s/60s. She is currently not on p.o. medications. PAST MEDICAL HISTORY: As above including noncompliance, diabetes mellitus. HOME MEDICATIONS: 1. Metoprolol. 2. Clonidine. 3. Lantus. ALLERGIES: NONE. REVIEW OF SYSTEMS: A 10-point review of systems is reviewed as above, otherwise negative. PHYSICAL EXAMINATION: VITAL SIGNS: Blood pressure 124/61, pulse 71, temperature afebrile. GENERAL: The patient is a pleasant female, who is in no acute distress. The patient appears her stated age. NEUROLOGIC: The patient is alert and oriented x3 with no focal neurologic deficits. HEENT: Sclerae without icterus. Mouth has moist mucous membranes with normal pallor. NECK: No JVD. Carotid upstroke brisk. No bruits bilaterally. LUNGS: Clear to auscultation with unlabored respirations. BACK: No scoliosis or kyphosis. CARDIAC: Regular rate and rhythm with normal S1 and S2. No S3 or S4 noted. No significant rubs, murmurs, thrills, or gallops noted throughout the precordium. PMI is not displaced. There is no parasternal heave. ABDOMEN: Soft, nontender, nondistended. No peritoneal signs present. No hepatosplenomegaly. No abnormal striae. EXTREMITIES: 2+ femoral and 2+ dorsalis pedis pulses. No cyanosis, clubbing, or edema. SKIN: No gross abnormalities. PERTINENT LABORATORY DATA: Creatinine 1.02. Sodium 131. Potassium 3.3. Peak troponin 0.5. Hemoglobin 13.3. IMAGING STUDIES: EKG showed normal sinus rhythm and ST-T wave changes suggesting LVH. IMPRESSION: 1. Malignant hypertension. 2. Noncompliance? 3. Coronary artery disease. 4. Status post stent placement. RECOMMENDATIONS: Elevated troponin likely is secondary to a type 2 myocardial infarction secondary to demand ischemia from malignant hypertension. I would recommend adding Norvasc in addition to diuretic therapy. We will continue to manage her sodium and creatinine closely in addition to her potassium. We will supplement as needed. We will try and wean off her Cardene. I would recommend an echocardiogram with Doppler to assess LVEF. The patient denies any symptoms suggesting angina. Job ID: [id number]
[2018-11-24] MEDS: diphenhydrAMINE 50 MG/ML VIAL IVP SCH ×2 (13:42→14:43)
[2018-11-24] MEDS: Metoclopramide HCl 10 MG/2 ML VIAL IVP PRN ×2 (18:30→19:00)
--- NOTE | 2018-11-24 19:23 | CON ---
DATE OF CONSULTATION: 11/24/2018 SERVICE: Pulmonary Medicine. REASON FOR CONSULT: ICU patient. HISTORY OF PRESENT ILLNESS: The patient is a 48-year-old female with past medical history significant for hypertension. She was really excitable because her son scored a touchdown. She ended up having nausea and vomiting and onset of a headache. It was bifrontal. She presented to the emergency department and her blood pressures were in the 260 ranges. As such, she was initiated on a Cardene drip, and subsequently sent to our place of work. THC, cocaine, and opiates were all positive on the drug screen. She continues to have a headache. She has nausea, and whenever she vomits, she feels a little bit better. She has an aversion to bright lights, or loud noises. She does have a history of migraine headache based on what she tells me. PAST MEDICAL HISTORY: 1. Hypertension. 2. Type 2 diabetes mellitus. 3. Coronary artery disease. 4. Multiple sclerosis? PAST SURGICAL HISTORY: 1. section x2. 2. PCI to the LAD. FAMILY HISTORY: Noncontributory. SOCIAL HISTORY: Positive for tobacco, alcohol, and marijuana. She has a history of being positive for cocaine. She has no exposure to chemicals, dust, asbestos, or tuberculosis. ALLERGIES: NONE. MEDICATIONS: List of her inpatient medications was reviewed. No specific updates were made at this time. REVIEW OF SYSTEMS: General, head, ears, eyes, nose, throat, cardiovascular, respiratory, GI, , musculoskeletal, neurologic, and skin are negative, except as mentioned in the HPI. PHYSICAL EXAMINATION: VITAL SIGNS: Afebrile, pulse 71, blood pressure 124/61, respirations 23, saturation 100% on room air. GENERAL: The patient is awake and alert, in no apparent distress. LUNGS: Wonderful air entry. There is no prolonged expiratory phase, wheezing, rhonchi, or crackles. HEART: Normal rate and regular. ABDOMEN: Soft, nontender, nondistended. Bowel sounds are positive. MUSCULOSKELETAL: No cyanosis or clubbing. No pitting in the bilateral lower extremities. NEUROLOGIC: Grossly nonfocal. LABORATORY DATA: CBC is grossly unremarkable. Sodium 131. Basic metabolic profile and liver function studies are otherwise unremarkable. Troponin 0.55. IMAGING STUDIES: CT of the head at outside hospital demonstrates no evidence of bleeding event. ASSESSMENT: 1. Hypertensive emergency. 2. Igx-PT-[id number] myocardial infarction. 3. Cocaine abuse. 4. Migraine headache. DISCUSSION AND PLAN: I will give the patient a Jayesh protocol for migraine headache. We will work the Cardene drip away. Her elevated blood pressure was likely a function of the cocaine which should be well out of her system by now. Pulmonary/Critical Care will follow along if she remains in this location. When she comes off the Cardene drip, she will be stable for transition to the telemetry unit. I will repeat a troponin tomorrow morning. 70 minutes have been devoted to this patient in various activities. I personally reviewed all imaging studies and laboratory data noted within this document. For fifty percent of this time, I was interacting with the patient at the bedside or coordinating care with the care team. For the remainder of the time I was immediately available to the patient in the hospital unit. Job ID: [id number] MTDD
--- NOTE | 2018-11-24 19:49 | PDOC.HOSPP ---
- Subjective Encounter Date: 11/24/18 Encounter Time: 19:10 Subjective: f/u HTN emergency with polysubstance abuse on Cardene gtt. - Objective Vital Signs & Weight: Vital Signs (12 hours) Temp Pulse BP Pulse Ox 11/24/18 19:27 100 11/24/18 19:00 98.6 F 11/24/18 16:00 98.5 F 11/24/18 15:00 98.5 F 11/24/18 13:41 76 156/91 H 11/24/18 12:00 98.4 F 11/24/18 07:53 100 11/24/18 07:52 98.5 F Weight Weight 171 lb 15.369 oz Most Recent Monitor Data Heart Rate from ECG 85 NIBP 178/82 NIBP BP-Mean 114 Respiration from ECG 15 SpO2 100 I&O: 11/23/18 11/24/18 11/25/18 06:59 06:59 06:59 Intake Total 2038 876 Output Total 800 860 Balance 1238 16 Result Diagrams: 11/24/18 05:58 11/24/18 05:58 Additional Labs: Accuchecks 11/24/18 11/24/18 11/24/18 16:27 12:10 06:00 POC Glucose 251 H 96 309 H 11/23/18 22:27 POC Glucose 261 H Laboratory Tests 06/18/16 06/18/16 06/19/16 23:39 23:39 00:38 WBC 13.0 H Sodium Potassium BUN Creatinine Troponin I 0.031 H Triglycerides Cholesterol LDL Cholesterol, Calc HDL Cholesterol Lipase Urine Opiates Screen Detected H Salicylates Acetaminophen U Benzodiazepines Scrn Detected H U Cocaine Metab Screen Detected H U Cannabinoids Screen Detected H Plasma Alcohol 06/19/16 06/19/16 08/08/16 03:46 06:42 01:52 WBC Sodium Potassium BUN Creatinine Troponin I 0.034 H 0.032 H Triglycerides Cholesterol LDL Cholesterol, Calc HDL Cholesterol Lipase 49 Urine Opiates Screen Salicylates Acetaminophen U Benzodiazepines Scrn U Cocaine Metab Screen U Cannabinoids Screen Plasma Alcohol 12/13/16 12/13/16 12/14/16 23:07 23:07 02:05 WBC Sodium Potassium BUN Creatinine Troponin I 0.040 H 0.034 H Triglycerides Cholesterol LDL Cholesterol, Calc HDL Cholesterol Lipase Urine Opiates Screen Salicylates Less than 8.0 L Acetaminophen Less than 6.0 L U Benzodiazepines Scrn U Cocaine Metab Screen U Cannabinoids Screen Plasma Alcohol Less than 10 12/14/16 12/14/16 12/16/16 05:19 11:50 15:30 WBC Sodium 132 L 131 L 135 L Potassium 3.2 L 3.1 L 3.8 BUN 19 H Creatinine 1.76 H Troponin I Triglycerides 183 H Cholesterol 235 H LDL Cholesterol, Calc 152 HDL Cholesterol 46 Lipase Urine Opiates Screen Salicylates Acetaminophen U Benzodiazepines Scrn U Cocaine Metab Screen U Cannabinoids Screen Plasma Alcohol 11/24/18 05:58 WBC Sodium Potassium BUN Creatinine Troponin I Triglycerides Cholesterol LDL Cholesterol, Calc HDL Cholesterol Lipase 103 H Urine Opiates Screen Salicylates Acetaminophen U Benzodiazepines Scrn U Cocaine Metab Screen U Cannabinoids Screen Plasma Alcohol EKG Reviewed by me: Yes (Tele - SR) Hospitalist ROS - Medication Medications: Active Medications Generic Name Dose Route Start Last Admin Trade Name Freq PRN Reason Stop Dose Admin Enoxaparin Sodium 40 mg 11/24/18 09:00 11/24/18 08:24 Lovenox SC 40 mg 0900 ANDRIA Administration Insulin Glargine 20 units/ 0.2 mls @ 0 mls/hr 11/23/18 21:00 11/23/18 22:28 Miscellaneous Medication SC 0.2 mls HS ANDRIA Administration Insulin Glargine 20 units/ 0.2 mls @ 0 mls/hr 11/24/18 09:00 11/24/18 08:58 Miscellaneous Medication SC 0.2 mls QAM ANDRIA Administration Nicardipine HCl 50 mg/ Sodium 250 mls @ 0 mls/hr 11/23/18 22:00 11/24/18 16: 38 Chloride IVPB 250 mls INF ANDRIA Administration Protocol Titrate Insulin Human Lispro 0 units 11/23/18 17:02 11/24/18 18:30 Humalog SC 4 units .MILD SLIDING SCALE PRN Administration Mild Correctional Scale Metoclopramide HCl 10 mg 11/24/18 13:09 11/24/18 18:30 Reglan IVP 10 mg Q30MIN PRN Administration Headache Metoprolol Tartrate 100 mg 11/24/18 09:00 11/24/18 08:24 Lopressor PO 100 mg BID ANDRIA Administration Ondansetron HCl 4 mg 11/23/18 16:55 11/24/18 16:33 Zofran IVP 4 mg Q6H PRN Administration Nausea/Vomiting Pantoprazole Sodium 40 mg 11/24/18 09:00 11/24/18 08:25 Protonix PO 40 mg DAILY ANDRIA Administration - Exam General Appearance: NAD, awake alert Eye: PERRL, anicteric sclera ENT: normocephalic atraumatic, no oropharyngeal lesions Neck: supple, symmetric, no JVD, no thyromegaly Heart: RRR, no murmur, no gallops, no rubs, normal peripheral pulses Respiratory: CTAB, no wheezes, no rales, no ronchi, normal chest expansion Gastrointestinal: soft, non-tender, non-distended, normal bowel sounds Extremities: no cyanosis, no clubbing, no edema Skin: normal turgor, no lesions Neurological: cranial nerve grossly intact, no focal deficits, no new deficit Musculoskeletal: normal tone, normal strength Psychiatric: normal behavior, A&O x 3 Hosp A/P - Plan PT/OT, social and human services assistant, respiratory therapy, out of bed/ambulate HTN emergency - improved with Cardene gtt, resuming home BP regimen, serial monitoring, likely mulitifactorial due to noncompliance and polysubstance abuse NSTEMI Type II - secondary to demand ischemic state, supportive mgmt HTN Encephalopathy - improved with BP control and avoidance of polysubstance abuse DM II - poor control, serial accuchecks, ADA, Glargine 20u BID, ISS Hyponatremia - chronic, encourage increased po intake, control hyperglycemia AM lab: BMP
[2018-11-25] MEDS: Ondansetron PF 4 MG/2 ML Vial IVP PRN (02:42)
[2018-11-25] MEDS: Metoclopramide HCl 10 MG/2 ML VIAL IVP PRN (02:43)
[2018-11-25] MEDS: niCARdipine 50 MG in Sodium Chloride 0.9% 250 ML 230 ML IVPB SCH (02:56)
[2018-11-25 04:19] LABS: Anion Gap 16 mmol/L (10-20); BUN (Urea Nitrogen) 14 mg/dL (7.0-18.7); Calc. Creatinine Clearance 87 mL/min (70-130); Calcium 9.2 mg/dL (7.8-10.44); Carbon Dioxide 23 mmol/L (22-29); Chloride 99 mmol/L (98-107); Estimated GFR-MDRD 74; Glucose 171 mg/dL (70-105); Potassium 3.1 mmol/L (3.5-5.1); Sodium 135 mmol/L (136-145)
[2018-11-25 04:28] LABS: Critical Call Chem Troponin I RESULT DECREASING; Troponin I 0.534 ng/mL (< 0.028)
[2018-11-25] MEDS: Enoxaparin Sodium 40 MG/0.4 ML SYRINGE SC SCH (08:28)
[2018-11-25] MEDS: Metoprolol Tartrate 100 MG TAB PO SCH ×2 (08:29→20:54)
[2018-11-25] MEDS: Hydrochlorothiazide 25 MG TAB PO SCH (08:29)
[2018-11-25] MEDS: Insulin Glargine 20 UNITS in Pre-Filled Syringe 1 EACH SC SCH (08:32)
[2018-11-25] MEDS ORDERED: Amlodipine 5 MG TAB PO SCH (09:00)
--- NOTE | 2018-11-25 11:29 | PDOC.CPN ---
- Subjective Date: 11/25/18 Time: 11:28 Interval history: Doing much better. No current complaints. BP improved - Objective Allergies/Adverse Reactions: Allergies Allergy/AdvReac Type Severity Reaction Status Date / Time No Known Allergies Allergy Verified 08/08/16 05:45 Visit Medications: Current Medications Amlodipine Besylate (Norvasc) 5 mg PO DAILY [facility] Last Admin: 11/25/18 08:29 Dose: 5 mg Dextrose/Water (Dextrose 50%) 25 gm SLOW IVP PRN PRN PRN Reason: Hypoglycemia Enoxaparin Sodium (Lovenox) 40 mg SC 0900 [facility] Last Admin: 11/25/18 08:28 Dose: 40 mg Glucagon (Glucagon) 1 mg IM PRN PRN PRN Reason: Hypoglycemia Hydrochlorothiazide (Hydrochlorothiazide) 25 mg PO DAILY [facility] Last Admin: 11/25/18 08:29 Dose: 25 mg Dextrose/Water (D5w) 1,000 mls @ 0 mls/hr IV .Q0M PRN PRN Reason: Hypoglycemia Insulin Glargine 20 units/ (Miscellaneous Medication) 0.2 mls @ 0 mls/hr SC HS [facility] Last Admin: 11/24/18 19:52 Dose: 0.2 mls Insulin Glargine 20 units/ (Miscellaneous Medication) 0.2 mls @ 0 mls/hr SC QAM [facility] Last Admin: 11/25/18 08:32 Dose: 0.2 mls Nicardipine HCl 50 mg/ Sodium (Chloride) 250 mls @ 0 mls/hr IVPB INF [facility]; Protocol Last Admin: 11/25/18 02:56 Dose: 250 mls Insulin Human Lispro (Humalog) 0 units SC .MILD SLIDING SCALE PRN PRN Reason: Mild Correctional Scale Last Admin: 11/24/18 18:30 Dose: 4 units Metoprolol Tartrate (Lopressor) 100 mg PO BID [facility] Last Admin: 11/25/18 08:29 Dose: 100 mg Ondansetron HCl (Zofran Odt) 4 mg PO Q6H PRN PRN Reason: Nausea/Vomiting Ondansetron HCl (Zofran) 4 mg IVP Q6H PRN PRN Reason: Nausea/Vomiting Last Admin: 11/25/18 02:42 Dose: 4 mg Pantoprazole Sodium (Protonix) 40 mg PO DAILY [facility] Last Admin: 11/25/18 08:29 Dose: 40 mg Vital Signs & Weight: Vital Signs Temp Pulse BP Pulse Ox 11/25/18 08:29 76 156/91 H 11/25/18 08:00 98.3 F 11/25/18 07:22 99 11/25/18 03:00 97.7 F Weight 172 lb 9.951 oz - Physical Exam General: alert & oriented x3 Neck: supple neck Cardiac: regular rate and rhythm Lungs: clear to auscultation Neuro: grossly intact Abdomen: unremarkable Musculoskeletal: normal range of motion - Labs Result Diagrams: 11/24/18 05:58 11/25/18 03:21 Troponin/CKMB CK-MB (CK-2) 5.9 ng/mL (0-6.6) 11/23/18 11:41 Troponin I 0.534 ng/mL (< 0.028) H* 11/25/18 03:21 - Assessment/Plan Assessment/Plan: Malignant HTN CAD s/p stent Pt improving No changes in PO meds Counseled on low Na diet On CCB, metoprolol and HCTZ Ok to medical Please reconsult if changes arise
[2018-11-25] MEDS: Potassium Chloride 20 MEQ TAB PO SCH ×2 (11:46→15:15)
--- NOTE | 2018-11-25 11:57 | PRG ---
DATE OF SERVICE: 11/25/2018 SERVICE: Pulmonary Medicine. INTERVAL HISTORY: The patient is fine from respiratory standpoint. Breathing comfortably. Denies any current chest discomfort, nausea, vomiting, fevers, or chills. Otherwise, there has been no interval change to her condition. Her headache is much better. PHYSICAL EXAMINATION: VITAL SIGNS: Afebrile, pulse 65, blood pressure 142/94, respirations 14, and saturation 100% on room air. GENERAL: The patient is awake and alert, in no apparent distress. LUNGS: Wonderful air entry with no prolonged expiratory phase or wheezing present. HEART: Normal rate. Regular. ABDOMEN: Soft, nontender, and nondistended. Bowel sounds are positive. MUSCULOSKELETAL: No cyanosis or clubbing. No pitting in the bilateral lower extremities. NEUROLOGIC: Grossly nonfocal. ASSESSMENT: 1. Hypertensive emergency. 2. Migraine headache. 3. Cocaine abuse. 4. Dlt-[id number] myocardial infarction. DISCUSSION AND PLAN: The patient is doing fine from respiratory standpoint. At this point, she is stable for transition out of the ICU to the medical unit. When she arrives on the floor, she will have no further requirements for inpatient Pulmonary/Critical Care opinion, and I will sign off. Please call with additional questions or concerns through time. Job ID: [id number]
[2018-11-25] MEDS: HumaLOG 300 UNITS/3 ML VIAL SC PRN ×2 (11:59→20:38)
--- NOTE | 2018-11-25 17:19 | PDOC.HOSPP ---
- Subjective Encounter Date: 11/25/18 Encounter Time: 17:15 Subjective: f/u for HTN emergency, polysubstance abuse and NSTEMI from the same. Feels ok overall and no CP. Resuming home BP regimen and overall BP trend improved. Feels better overall. - Objective Vital Signs & Weight: Vital Signs (12 hours) Temp Pulse Resp BP BP BP Pulse Ox 11/25/18 16:17 158/83 H 11/25/18 12:41 97.8 F 68 16 138/78 98 11/25/18 08:29 76 156/91 H 11/25/18 08:00 98.3 F 11/25/18 07:22 99 Weight Weight 172 lb 9.951 oz Most Recent Monitor Data Heart Rate from ECG 62 NIBP 157/91 NIBP BP-Mean 113 Respiration from ECG 15 SpO2 100 I&O: 11/24/18 11/25/18 11/26/18 06:59 06:59 06:59 Intake Total 2038 1149 327 Output Total 800 1260 0 Balance 1238 -111 327 Result Diagrams: 11/24/18 05:58 11/25/18 03:21 Additional Labs: Accuchecks 11/25/18 11/25/18 11/25/18 16:20 11:37 06:37 POC Glucose 161 H 167 H 144 H 11/24/18 21:22 POC Glucose 101 Laboratory Tests 11/23/18 11/23/18 11/23/18 11:41 14:56 17:49 Potassium Troponin I 0.651 H* 0.600 H* 0.559 H* 11/24/18 11/25/18 05:58 03:21 Potassium 3.3 L Troponin I 0.534 H* Hospitalist ROS - Medication Medications: Active Medications Generic Name Dose Route Start Last Admin Trade Name Freq PRN Reason Stop Dose Admin Amlodipine Besylate 5 mg 11/25/18 09:00 11/25/18 08:29 Norvasc PO 5 mg DAILY ANDRIA Administration Enoxaparin Sodium 40 mg 11/24/18 09:00 11/25/18 08:28 Lovenox SC 40 mg 0900 ANDRIA Administration Hydrochlorothiazide 25 mg 11/25/18 09:00 11/25/18 08:29 Hydrochlorothiazide PO 25 mg DAILY ANDRIA Administration Insulin Glargine 20 units/ 0.2 mls @ 0 mls/hr 11/23/18 21:00 11/24/18 19:52 Miscellaneous Medication SC 0.2 mls HS ANDRIA Administration Insulin Glargine 20 units/ 0.2 mls @ 0 mls/hr 11/24/18 09:00 11/25/18 08:32 Miscellaneous Medication SC 0.2 mls QAM ANDRIA Administration Nicardipine HCl 50 mg/ Sodium 250 mls @ 0 mls/hr 11/23/18 22:00 11/25/18 02: 56 Chloride IVPB 250 mls INF ANDRIA Administration Protocol Titrate Insulin Human Lispro 0 units 11/23/18 17:02 11/25/18 11:59 Humalog SC 2 units .MILD SLIDING SCALE PRN Administration Mild Correctional Scale Metoprolol Tartrate 100 mg 11/24/18 09:00 11/25/18 08:29 Lopressor PO 100 mg BID ANDRIA Administration Ondansetron HCl 4 mg 11/23/18 16:55 11/25/18 02:42 Zofran IVP 4 mg Q6H PRN Administration Nausea/Vomiting Pantoprazole Sodium 40 mg 11/24/18 09:00 11/25/18 08:29 Protonix PO 40 mg DAILY ANDRIA Administration - Exam General Appearance: NAD, awake alert Eye: PERRL, anicteric sclera ENT: normocephalic atraumatic, no oropharyngeal lesions Neck: supple, symmetric, no JVD, no thyromegaly, no lymphadenopathy Heart: RRR, no murmur, no gallops, no rubs, normal peripheral pulses Respiratory: CTAB, no wheezes, no rales, no ronchi Gastrointestinal: soft, non-tender, non-distended, normal bowel sounds, no palpable masses Extremities: no cyanosis, no clubbing, no edema Skin: normal turgor Neurological: cranial nerve grossly intact, no focal deficits, no new deficit Musculoskeletal: normal tone, normal strength, no muscle wasting Psychiatric: normal affect, A&O x 3 Hosp A/P (1) Hypertensive emergency Code(s): I16.1 - HYPERTENSIVE EMERGENCY Status: Acute Plan: Resolved, resuming home BP regimen, stable BP trend currently (2) Polysubstance abuse Code(s): F19.10 - OTHER PSYCHOACTIVE SUBSTANCE ABUSE, UNCOMPLICATED Status: Chronic Plan: Cessation resources (3) Noncompliance Code(s): Z91.19 - PATIENT'S NONCOMPLIANCE W OTH MEDICAL TREATMENT AND REGIMEN Status: Chronic (4) NSTEMI (non-ST elevated myocardial infarction) Code(s): I21.4 - NON-ST ELEVATION (NSTEMI) MYOCARDIAL INFARCTION Status: Acute Plan: Secondary to demand state, Type II, no intervention per Cardiology (5) Diabetes type 2, uncontrolled Code(s): E11.65 - TYPE 2 DIABETES MELLITUS WITH HYPERGLYCEMIA Status: Chronic Qualifiers: Qualified Code(s): E11.65 - Type 2 diabetes mellitus with hyperglycemia Plan: ISS, Lantus 40u sc BID, serial accuchecks - Plan social services manager, out of bed/ambulate, DVT proph w/SCDs HTN emergency - resuming home BP regimen, serial monitoring, likely mulitifactorial due to noncompliance and polysubstance abuse NSTEMI Type II - secondary to demand ischemic state, supportive mgmt HTN Encephalopathy - improved with BP control and avoidance of polysubstance abuse DM II - poor control, serial accuchecks, ADA, Glargine 40u BID, ISS Hyponatremia - chronic, encourage increased po intake, control hyperglycemia Likely home in am
[2018-11-25] MEDS: Acetaminophen/Codeine 30-300mg Tablet PO SCH (20:34)
[2018-11-25] MEDS: Carvedilol 25 MG TAB PO SCH (20:35)
[2018-11-25] MEDS: Pregabalin 75 MG CAP PO SCH (20:36)
[2018-11-25] MEDS: cloNIDine 0.3 MG TAB PO SCH (20:38)
[2018-11-25] MEDS ORDERED: Insulin Glargine 40 UNITS in Pre-Filled Syringe 1 EACH SC SCH (21:00)
[2018-11-25] MEDS ORDERED: Metoprolol Tartrate 100 MG TAB PO SCH (21:00)
[2018-11-26] MEDS: HumaLOG 300 UNITS/3 ML VIAL SC PRN (06:00)
[2018-11-26 06:26] LABS: Anion Gap 9 mmol/L (10-20); BUN (Urea Nitrogen) 16 mg/dL (7.0-18.7); Calc. Creatinine Clearance 73 mL/min (70-130); Calcium 8.5 mg/dL (7.8-10.44); Carbon Dioxide 28 mmol/L (22-29); Chloride 103 mmol/L (98-107); Estimated GFR-MDRD 60; Glucose 152 mg/dL (70-105); Potassium 3.5 mmol/L (3.5-5.1); Sodium 136 mmol/L (136-145)
[2018-11-26] MEDS: cloNIDine 0.3 MG TAB PO SCH (08:21)
[2018-11-26] MEDS: Pregabalin 75 MG CAP PO SCH (08:21)
[2018-11-26] MEDS: Hydrochlorothiazide 25 MG TAB PO SCH (08:22)
[2018-11-26] MEDS: Acetaminophen/Codeine 30-300mg Tablet PO SCH (08:22)
[2018-11-26] MEDS: Carvedilol 25 MG TAB PO SCH (08:22)
[2018-11-26] MEDS: Enoxaparin Sodium 40 MG/0.4 ML SYRINGE SC SCH (08:23)
[2018-11-26] MEDS: Metoprolol Tartrate 100 MG TAB PO SCH (08:24)
[2018-11-26] MEDS ORDERED: Aspirin Chewable 81 MG TAB PO SCH (09:00)
[2018-11-26] MEDS ORDERED: Amlodipine 10 MG TAB PO SCH (09:00)
[2018-11-26] MEDS ORDERED: Insulin Glargine 40 UNITS in Pre-Filled Syringe 1 EACH SC SCH (09:00)
[2018-11-26] MEDS ORDERED: Clopidogrel Bisulfate 75 MG TAB PO SCH (09:00)
--- NOTE | 2018-11-26 09:40 | PRG ---
DATE OF SERVICE: 11/26/2018 SUBJECTIVE: She presented to the hospital with polysubstance abuse and hypertension. This morning, she is better. Denies any headache or nausea. Vomiting. OBJECTIVE: VITAL SIGNS: Blood pressure is stabilized at 158/89, saturations are 95%_ on room air, respiratory rate 18, temperature 98,4 No nausea. No headaches. CHEST: No wheezing or crackles. CARDIAC: Normal S1 and S2. No gallops. ABDOMEN: No mass. ASSESSMENT: Uncontrolled hypertension, migraine headaches, azotemia, substance abuse. PLAN: Pulmonary has nothing to offer at this time. She needs ongoing counseling regarding her drug abuse. Disposition as per primary care physician. Job ID: [id number] MTDD
[2018-11-26 12:04] VITALS: BP 117/71; TEMP 97.9
--- NOTE | 2018-11-26 16:06 | DIS ---
DATE OF ADMISSION: 11/23/2018 DATE OF DISCHARGE: 11/26/2018 DISCHARGE DIAGNOSES: 1. Hypertensive emergency due to noncompliance, resolved. 2. Polysubstance abuse. 3. Medication noncompliance. 4. Non-ST elevation myocardial infarction, type 2 secondary to demand ischemia. 5. Diabetes mellitus, type 2, insulin requiring. CONSULTATIONS: 1. Dr. Ríos with Cardiology Service. 2. Dr. Ambriz with Pulmonology/Critical Care Service. PERTINENT LABORATORY AND X-RAY FINDINGS: Creatinine ranged between 0.98 to 1.17. Estimated GFR ranged between 60 to 74. Troponin I ranged between 0.534 to 0.651. CBC showed a white blood cell count of 11.4, hemoglobin 13, hematocrit 41, and platelet count 214. HOSPITAL COURSE: The patient was initially admitted to Critical Care Unit after presenting with hypertensive emergency, placed on a Cardene infusion. The patient with prior similar admission due to medication noncompliance discovered with a positive urine drug screen including cocaine and THC. The patient was also noted with concomitant troponin I elevation, evaluated by the Cardiology Service. The patient was deemed non-ST elevation myocardial infarction type 2 due to demand ischemia in the context of hypertensive emergency. The patient's overall blood pressure trend did improve with Cardene infusion and initiation of home blood pressure medication regimen. The patient clinically stabilized with overall improving blood pressure trend and transferred to the medical floor, remaining clinically stable for the hospital course. I have examined the patient at the time of discharge and discussed followup instructions. The patient verbalized understanding and in agreement, ready for discharge on 11/26/2018. DISCHARGE MEDICATIONS: 1. Tylenol No. 3 of 300/30 mg 1 tablet p.o. b.i.d. 2. Clonidine 0.3 mg p.o. t.i.d. 3. Glargine insulin 40 units subcutaneously b.i.d. 4. Lopressor 100 mg p.o. b.i.d. 5. Pregabalin 150 mg p.o. b.i.d. 6. Norvasc 10 mg p.o. daily. 7. Enteric-coated aspirin 81 mg p.o. daily. 8. Plavix 75 mg p.o. daily. 9. Hydrochlorothiazide 25 mg p.o. daily. 10. Reglan 10 mg p.o. t.i.d. p.r.n. 11. Protonix 40 mg p.o. daily. FOLLOWUP: The patient may follow up with her primary care provider, Yolanda Adams in [place], [place] within 7 days of discharge. CONDITION ON DISCHARGE: Stable. ACTIVITY: Ad-farhat. DIET: ADA and heart healthy. CODE STATUS: Full. DISPOSITION: Home on 11/26/2018. TIME SPENT: Total time preparing and coordinating discharge, 32 minutes. Job ID: [id number]
== END 2018-11-26 12:00 | disposition home or self-care (01) | DRG 281 ==
LOC: ERS 11:01 → CCU 15:27 → ERHOLD 15:28 → CCU 16:21 → T4-B 11-25 12:02
PROVIDERS: ADMIT Internal Medicine; ATTEND Internal Medicine
DX: I16.1 Hypertensive emergency (principal); I21.A1 Myocardial infarction type 2; I67.4 Hypertensive encephalopathy; E87.1 Hypo-osmolality and hyponatremia; I10 Essential (primary) hypertension; G35 Multiple sclerosis; F17.210 Nicotine dependence, cigarettes, uncomplicated; I25.10 Atherosclerotic heart disease of native coronary artery without angina pectoris; F14.10 Cocaine abuse, uncomplicated; F12.90 Cannabis use, unspecified, uncomplicated; G43.909 Migraine, unspecified, not intractable, without status migrainosus; E11.65 Type 2 diabetes mellitus with hyperglycemia; F19.10 Other psychoactive substance abuse, uncomplicated; Z91.14 Patient's other noncompliance with medication regimen; Z79.899 Other long term (current) drug therapy; Z79.4 Long term (current) use of insulin; Z95.5 Presence of coronary angioplasty implant and graft
CPT/HCPCS: 36415; 36416; 80048; 80053; 82553; 83690; 84484; 85025; 93005; 96365; 96366; 96372; 96375; J1200; J1650; J1815; J2060; J2405; J2765; J7050; Q0162

== ENCOUNTER 2018-12-05 15:42 | Inpatient (IN) | payer SELFPAY ==
[2018-12-05 16:59] LABS: #Lymphocytes 1.3 thou/uL (1.20-3.40); #Monocytes 0.7 thou/uL (0.11-0.59); #Neutrophils 9.9 thou/uL (1.40-6.50); %Basophils 0.1 % (0.0-1.0); %Eosinophils 0.4 % (0.0-10.0); %Lymphocytes 10.6 % (21.0-51.0); %Monocytes 5.5 % (0.0-10.0); %Neutrophils 83.5 % (42.0-75.0); Hemoglobin 10.8 g/dL (12.0-16.0); Mean Corpuscular HGB CONC 33.4 g/dL (32.0-36.0); Mean Corpuscular Hemoglobin 27.7 pg (27.0-31.0); Mean Corpuscular Volume 83.1 fL (78.0-98.0); Mean Platelet Volume 8.9 fL (7.4-10.4); Platelet Count 265 thou/uL (130-400); RBC Distribution Width 13.2 % (11.5-14.5); Red Blood Cell (RBC) Count 3.89 mill/uL (4.20-5.40); White Blood Cell (WBC) Count 11.9 thou/uL (4.8-10.8)
--- NOTE | 2018-12-05 17:01 | RAD ---
Exam: Chest one view: HISTORY: Shortness of breath, dyspnea COMPARISON: 12/05/2018 Veins: Again noted are extensive bilateral alveolar parenchymal changes certainly concerning for alveolar ed lucille. Heart size is borderline enlarged. IMPRESSION: Extensive stable bilateral mostly perihilar alveolar opacity changes throughout both lungs with minim al cardiomegaly.
[2018-12-05 17:25] LABS: ALT (SGPT) 18 U/L (8-55); AST (SGOT) 16 U/L (5-34); Albumin 3.7 g/dL (3.5-5.0); Alkaline Phosphatase 100 U/L (40-110); Anion Gap 16 mmol/L (10-20); BUN (Urea Nitrogen) 10 mg/dL (7.0-18.7); Bilirubin, Total 0.7 mg/dL (0.2-1.2); Calc. Creatinine Clearance 0 mL/min (70-130); Calcium 8.7 mg/dL (7.8-10.44); Carbon Dioxide 23 mmol/L (22-29); Chloride 98 mmol/L (98-107); Estimated GFR-MDRD 68; Globulin 2.9 g/dL (2.4-3.5); Glucose 312 mg/dL (70-105); Lipase 15 U/L (8-78); Potassium 3.7 mmol/L (3.5-5.1); Protein, Total 6.6 g/dL (6.0-8.3); Sodium 133 mmol/L (136-145)
[2018-12-05 17:41] LABS: CKMB 1.6 ng/mL (0-6.6)
[2018-12-05] MEDS ORDERED: Furosemide 40 MG/4 ML VIAL ONE (18:31)
[2018-12-05] MEDS ORDERED: Aspirin Chewable 81 MG TAB ONE (18:31)
[2018-12-05] MEDS ORDERED: Acetaminophen/Codeine 30-300mg Tablet ONE (18:49)
[2018-12-05 18:58] LABS: Lactic Acid 1.4 mmol/L (0.5-2.2)
[2018-12-05] MEDS ORDERED: Ondansetron ODT 4 MG TAB PO PRN (20:19)
[2018-12-05] MEDS ORDERED: Ondansetron PF 4 MG/2 ML Vial IVP PRN (20:19)
[2018-12-05] MEDS ORDERED: Acetaminophen 325 MG TAB PO PRN (20:19)
[2018-12-05 20:27] LABS: Troponin I 0.061 ng/mL (< 0.028)
[2018-12-05] MEDS ORDERED: Azithromycin 500 MG in Sodium Chloride 0.9% 250 ML 250 ML IVPB SCH (20:30)
[2018-12-05] MEDS ORDERED: Dextrose 5% in Water 1,000 ML IV PRN (20:30)
[2018-12-05] MEDS ORDERED: Dextrose 50% Abboject 50 ML SYRINGE SLOW IVP PRN (20:30)
[2018-12-05] MEDS ORDERED: cefTRIAXone\\ROCEPHIN 1 GM in Sodium Chloride 0.9% 100 ML IVPB SCH (20:30)
[2018-12-05 21:04] VITALS: BMI 29.5
[2018-12-05] MEDS ORDERED: Metoclopramide HCl 10 MG TAB PO PRN (21:37)
[2018-12-05] MEDS ORDERED: cloNIDine 0.3 MG TAB PO SCH (22:00)
[2018-12-05] MEDS ORDERED: Pregabalin 75 MG CAP PO SCH (22:00)
[2018-12-05] MEDS ORDERED: Metoprolol Tartrate 100 MG TAB PO SCH (22:00)
[2018-12-05] MEDS: Cefepime 1 GM in Sodium Chloride 0.9% 100 ML IVPB SCH (22:09)
[2018-12-05] MEDS: Vancomycin HCl 1 GM in Premix Bag 1 BAG IVPB SCH (22:45)
[2018-12-05] MEDS ORDERED: Insulin Glargine 40 UNITS in Pre-Filled Syringe 1 EACH SC SCH (23:00)
[2018-12-05] MEDS: HumaLOG 300 UNITS/3 ML VIAL SC PRN (23:35)
[2018-12-05 23:54] LABS: Troponin I 0.053 ng/mL (< 0.028)
--- NOTE | 2018-12-06 02:29 | HP ---
CHIEF COMPLAINT: Pneumonia. HISTORY OF PRESENT ILLNESS: The patient is a 48-year-old female who was just recently admitted to this facility by me on 11/23/2018. At that time, the patient had a significant cocaine abuse resulting in severe hypertensive urgency. The patient states that she was in her usual state of health until about 2 days ago when she developed fever, cough, and shortness of breath. She reports that she did take her temperature at home and it was recorded as high as 102.5. She denies any sinus congestion or drainage. She does have some sputum production, but reports that it is clear. She has some discomfort in her chest and abdomen with the cough. She admits to dyspnea on exertion, but less short of breath at rest and she reports orthopnea as well. She has no ill contacts. REVIEW OF SYSTEMS: The patient reports she has had swelling in her hands and feet for the last couple of days, had some nausea that started today. PAST MEDICAL HISTORY: Hypertension. Diabetes, poorly controlled. History of coronary artery disease, single vessel. There was also some reported history remotely of multiple sclerosis, however, no clinical evidence for that. Please see further discussion in the previous H and P under past medical history. She has had several admissions previously with cocaine abuse and hypertensive urgencies. PAST SURGICAL HISTORY: x2 and coronary stents in the LAD. FAMILY HISTORY: Strong family history in both parents of stroke. SOCIAL HISTORY: The patient is a modest smoker. Occasionally uses marijuana. Uses cocaine. ALLERGIES: NONE. MEDICATIONS: 1. Plavix 75 mg daily. 2. Coreg 6.25 b.i.d. 3. Clonidine patch 0.3 mg per 24 hours. 4. Aspirin 81 mg daily. 5. Lantus sliding scale. 6. Humalog sliding scale. 7. Tylenol No.3 p.r.n. PHYSICAL EXAMINATION: VITAL SIGNS: Most recent vitals; BP 190/109, pulse 80, respirations 18, O2 sats 95% on room air. Lowest documented saturation was 93% on room air. GENERAL APPEARANCE: Age-appropriate female. She is in no distress. Awake, alert, very pleasant, cooperative. HEENT: PERRL. No OP lesions. NECK: Supple and symmetric with no lymphadenopathy, JVD, or bruits. HEART: Regular rate and rhythm without murmurs, gallops, or rubs. LUNGS: Have significant rales scattered throughout the right lung with some expiratory wheezing. Left is slightly diminished, but no rales are noted. ABDOMEN: Soft, nontender, and nondistended. Positive bowel sounds. No masses. No organomegaly. EXTREMITIES: Reveal trace to 1+ edema of the ankles and feet. NEUROLOGICAL: She appears to be intact with no focal deficits. PSYCH: Normal affect and behavior. LABORATORY DATA: White count 11.9, hemoglobin 10.8, platelets 265. Sodium 133, potassium 3.7, chloride 98, BUN 10, creatinine is 1.05, glucose 312, lactic acid 1.4, calcium 8.7. LFTs normal. Troponin 0.062. BNP 426. Lipase 15. Chest x- ray shows extensive stable bilateral mostly perihilar alveolar opacity changes throughout both lungs with minimal cardiomegaly. The suggestion is that this is concerning for alveolar edema. EKG, LVH with repolarization abnormality, sinus rhythm, 72. IMPRESSION AND PLAN: 1. Dyspnea, etiology of this is most likely either pneumonia or congestive heart failure. Evidence for pneumonia is the fact the patient reports 102.5 temperature, she has a white count of 11.9. However, evidence for congestive heart failure is her known history of some diastolic dysfunction on echo, a BNP that is 426, the only other we have in the record was at 212 suggesting it is somewhat elevated. Her pulmonary edema pattern on her x-ray appears to be more consistent with congestive heart failure. Ultimately, we will be treating both. 2. Probable congestive heart failure, again based on the elevated BNP and bilateral pulmonary edema pattern on her chest x-ray. She did receive 40 mg of Lasix in the emergency department. We will continue with that b.i.d. for now. We will repeat her echocardiogram, it is what appears to be a couple of years since she had one and she is certainly traumatized her heart a bit with the cocaine usage. In the meantime, we will continue with the beta blockers. 3. Possible pneumonia. The patient has reported fever, shortness of breath, and slightly elevated white blood cell count. The patient has just been discharged from the hospital, therefore, need to cover for hospital-acquired shiv including vancomycin and cefepime. 4. Diabetes mellitus. We will give diabetic diet, Accu-Cheks, and sliding scale insulin. We will obtain a hemoglobin A1c as it has been several years since she had one of those obtained here. It appears as though her blood sugars are not well controlled. 5. Elevated troponins. These troponins are consistent with her history. She has never had a normal troponin recorded at this facility. In fact, this is one of the lower ones. She did have NSTEMI type 2 secondary to the hypertensive urgency with the troponin on 11/25/2018 at 0.534. 6. History of coronary artery disease. We will continue with the Plavix and aspirin. Job ID: [id number] [facility] CENTER[facility]avier
[2018-12-06 05:46] LABS: #Eosinphils 0.1 thou/uL (0.0-0.7); #Lymphocytes 1.4 thou/uL (1.20-3.40); #Monocytes 0.8 thou/uL (0.11-0.59); #Neutrophils 7.6 thou/uL (1.40-6.50); %Basophils 0.1 % (0.0-1.0); %Eosinophils 1.2 % (0.0-10.0); %Lymphocytes 13.7 % (21.0-51.0); %Monocytes 8.4 % (0.0-10.0); %Neutrophils 76.6 % (42.0-75.0); Hemoglobin 10.4 g/dL (12.0-16.0); Mean Corpuscular HGB CONC 34.5 g/dL (32.0-36.0); Mean Corpuscular Hemoglobin 28.5 pg (27.0-31.0); Mean Corpuscular Volume 82.8 fL (78.0-98.0); Mean Platelet Volume 9.3 fL (7.4-10.4); Platelet Count 262 thou/uL (130-400); Red Blood Cell (RBC) Count 3.65 mill/uL (4.20-5.40); White Blood Cell (WBC) Count 9.9 thou/uL (4.8-10.8)
[2018-12-06 06:05] LABS: Anion Gap 10 mmol/L (10-20); BUN (Urea Nitrogen) 9 mg/dL (7.0-18.7); Calc. Creatinine Clearance 101 mL/min (70-130); Calcium 8.6 mg/dL (7.8-10.44); Carbon Dioxide 27 mmol/L (22-29); Chloride 101 mmol/L (98-107); Estimated GFR-MDRD 75; Glucose 236 mg/dL (70-105); Potassium 3.4 mmol/L (3.5-5.1); Sodium 135 mmol/L (136-145)
[2018-12-06] MEDS: HumaLOG 300 UNITS/3 ML VIAL SC PRN ×3 (06:14→21:13)
[2018-12-06] MEDS: Furosemide 40 MG/4 ML VIAL SLOW IVP SCH ×2 (06:15→14:50)
[2018-12-06] MEDS ORDERED: Carvedilol 6.25 MG TAB PO SCH (08:00)
[2018-12-06] MEDS: Acetaminophen/Codeine 30-300mg Tablet PO SCH ×2 (09:19→20:52)
[2018-12-06] MEDS: Insulin Glargine 40 UNITS in Pre-Filled Syringe 1 EACH SC SCH ×2 (09:19→21:13)
[2018-12-06] MEDS: Pregabalin 75 MG CAP PO SCH ×2 (09:21→20:53)
[2018-12-06] MEDS: cloNIDine 0.3 MG TAB PO SCH ×3 (09:22→20:51)
[2018-12-06] MEDS: Aspirin 81 mg Enteric Coated Tablet PO SCH (09:22)
[2018-12-06] MEDS: Hydrochlorothiazide 25 MG TAB PO SCH (09:22)
[2018-12-06] MEDS: Metoprolol Tartrate 100 MG TAB PO SCH ×2 (09:23→20:52)
[2018-12-06] MEDS: Clopidogrel Bisulfate 75 MG TAB PO SCH (09:23)
[2018-12-06] MEDS: Enoxaparin Sodium 40 MG/0.4 ML SYRINGE SC SCH (09:23)
[2018-12-06] MEDS: Cefepime 1 GM in Sodium Chloride 0.9% 100 ML IVPB SCH ×2 (09:24→20:53)
[2018-12-06] MEDS: Vancomycin HCl 1 GM in Premix Bag 1 BAG IVPB SCH ×2 (10:43→22:13)
[2018-12-06] MEDS ORDERED: Lisinopril 5 MG TAB PO SCH (11:30)
--- NOTE | 2018-12-06 13:39 | RAD ---
PORTABLE CHEST: Date: 12/06/18 COMPARISON: Prior day's exam. HISTORY: Pulmonary edema. FINDINGS: Heart size appears borderline to slightly enlarged. Interstitial alveolar lung changes and both lung ruiz show some slight improvement. IMPRESSION: Very slight improvement to the interstitial alveolar lung change. POS: [facility]
[2018-12-06 17:33] LABS: Bacteria/HPF None Seen HPF (None Seen); Bilirubin Negative (Negative); Blood, Urine Negative (Negative); Clarity Clear (Clear); Glucose, Urine (Dipstick) Normal (Negative); Leukocyte Negative Leu/uL (Negative); Nitrite Negative (Negative); Protein, Urine (Dipstick) Negative (Neg-Trace); RBC/HPF 0-3 HPF (0-3); Squamous Epithelial 0-3 HPF (0-3); Urobilinogen Normal mg/dL (Less than 2); WBC/HPF 0-3 HPF (0-3)
[2018-12-06 17:50] LABS: Urine Culture Reflex No No
[2018-12-06] MEDS ORDERED: ISOVUE-370 76%-LOCM 1 ML ONE (18:20)
[2018-12-06] MEDS ORDERED: hydrALAZINE 20 MG/ML VIAL SLOW IVP PRN (20:56)
[2018-12-06 21:29] LABS: BHCG - Serum Negative (NEGATIVE); Pregs Control Background? CLEAR/WHITE (CLR/WHITE); Pregs Control Bar Appear? YES (CONTROL BAR)
--- NOTE | 2018-12-06 21:34 | PDOC.HOSPP ---
- Subjective Subjective: Doing better today. Breathing some better. Less cough. - Objective Vital Signs & Weight: Vital Signs (12 hours) Temp Pulse Resp BP BP BP Pulse Ox 12/06/18 20:51 182/95 H 12/06/18 19:38 97.5 F L 70 16 182/95 H 93 L 12/06/18 15:00 97.9 F 71 16 164/84 H 93 L 12/06/18 10:51 98.5 F 73 20 193/98 H 92 L Weight Admit Weight 193 lb 12.8 oz Weight 193 lb 12.8 oz I&O: 12/05/18 12/06/18 12/07/18 06:59 06:59 06:59 Intake Total 294 1550 Output Total 100 1150 Balance 194 400 Result Diagrams: 12/06/18 05:01 12/06/18 05:01 Additional Labs: Accuchecks 12/06/18 12/06/18 12/06/18 20:28 16:45 10:59 POC Glucose 301 H 293 H 196 H 12/06/18 06:17 POC Glucose 255 H Hospitalist ROS - Medication Medications: Active Medications Generic Name Dose Route Start Last Admin Trade Name Freq PRN Reason Stop Dose Admin Acetaminophen/Codeine Phosphate 1 tab 12/06/18 09:00 12/06/18 20:52 Tylenol #3 PO 1 tab BID ANDRIA Administration Aspirin 81 mg 12/06/18 09:00 12/06/18 09:22 Ecotrin PO 81 mg DAILY ANDRIA Administration Clonidine 0.3 mg 12/06/18 09:00 12/06/18 20:51 Catapres PO 0.3 mg TID ANDRIA Administration Clopidogrel Bisulfate 75 mg 12/06/18 09:00 12/06/18 09:23 Plavix PO 75 mg DAILY ANDRIA Administration Enoxaparin Sodium 40 mg 12/06/18 09:00 12/06/18 09:23 Lovenox SC 40 mg 0900 ANDRIA Administration Furosemide 40 mg 12/06/18 06:00 12/06/18 14:50 Lasix SLOW IVP 40 mg 0600,1400 ANDRIA Administration Hydrochlorothiazide 25 mg 12/06/18 09:00 12/06/18 09:22 Hydrochlorothiazide PO 25 mg DAILY ANDRIA Administration Cefepime HCl 1 gm/ Sodium 100 mls @ 200 mls/hr 12/05/18 22:00 12/06/18 20:53 Chloride IVPB 100 mls 1000,2200 ANDRIA Administration Vancomycin HCl 1 gm/ Device 200 mls @ 200 mls/hr 12/05/18 23:00 12/06/18 10: 43 IVPB 200 mls 1100,2300 ANDRIA Administration Insulin Glargine 40 units/ 0.4 mls @ 0 mls/hr 12/06/18 09:00 12/06/18 21:13 Miscellaneous Medication SC 0.4 mls BID ANDRIA Administration Insulin Human Lispro 0 units 12/05/18 20:30 12/06/18 17:18 Humalog SC 6 unit .MODERATE SLIDING SC PRN Administration Moderate Correctional Scale Insulin Human Lispro 0 units 12/05/18 22:55 12/06/18 21:13 Humalog SC 4 unit .BEDTIME SLIDING SC PRN Administration BEDTIME SLIDING SCALE Protocol Metoclopramide HCl 10 mg 12/05/18 21:37 12/06/18 09:39 Reglan PO 10 mg TID PRN Administration Nausea/Vomiting Metoprolol Tartrate 100 mg 12/06/18 09:00 12/06/18 20:52 Lopressor PO 100 mg BID ANDRIA Administration Ondansetron HCl 4 mg 12/05/18 20:19 12/06/18 20:52 Zofran Odt PO 4 mg Q6H PRN Administration Nausea/Vomiting Ondansetron HCl 4 mg 12/05/18 20:19 12/05/18 22:06 Zofran IVP 4 mg Q6H PRN Administration Nausea/Vomiting Pantoprazole Sodium 40 mg 12/06/18 09:00 12/06/18 09:23 Protonix PO 40 mg DAILY ANDRIA Administration Pregabalin 150 mg 12/06/18 09:00 12/06/18 20:53 Lyrica PO 150 mg BID ANDRIA Administration - Exam General Appearance: NAD, awake alert Heart: RRR, no murmur, no gallops, no rubs, normal peripheral pulses Respiratory - other findings: Right basilar rales. Left clear. Gastrointestinal: soft, non-tender, non-distended, normal bowel sounds, no palpable masses, no hepatomegaly, no splenomegaly, no bruit Extremities: no cyanosis, no clubbing, no edema Musculoskeletal: normal tone Psychiatric: normal affect, normal behavior, A&O x 3 Hosp A/P (1) Pneumonitis Code(s): J18.9 - PNEUMONIA, UNSPECIFIED ORGANISM Status: Acute (2) Hypertension Code(s): I10 - ESSENTIAL (PRIMARY) HYPERTENSION Status: Acute (3) Diabetes type 2, uncontrolled Code(s): E11.65 - TYPE 2 DIABETES MELLITUS WITH HYPERGLYCEMIA Status: Chronic (4) HTN (hypertension) Code(s): I10 - ESSENTIAL (PRIMARY) HYPERTENSION Status: Chronic (5) Polysubstance abuse Code(s): F19.10 - OTHER PSYCHOACTIVE SUBSTANCE ABUSE, UNCOMPLICATED Status: Chronic (6) LVH (left ventricular hypertrophy) Code(s): I51.7 - CARDIOMEGALY Status: Acute - Plan She has bilateral, fairly diffuse infiltrates on the CXR. They persists today. slightly better. She may have pneumonia as she reported significant fever prior to admission. She has been afebrile since admission. She may have some CHF, but I suspect she would have improved more by now and her echo has fair cardiac function. She may have some lung injury from drugs. She denies using IV drugs and says she does not snort, smoke or inhale the cocaine. She says she ingested it the most recent usage. She has been able to get up and around a bit in her room today. Given the severity of the findings on the CXR, plan to continue IV abx to cover HCAP and to continue diuretics. She does not appear to diuresing a great deal. Will get a CT chest as her echo did reveal the right ventricular pressure increase consistent with pulm htn. Non-specific finding. Continue accuchecks and SSI.
--- NOTE | 2018-12-06 22:30 | CT ---
EXAM: CT ANGIOGRAM OF THE CHEST 12/06/18 HISTORY: Pneumonia. Cough. Chest pain and congestion. COMPARISON: None. TECHNIQUE: CT angiogram of the chest is performed in the axial plane. Three dimensional reformatted images are s ubmitted for interpretation. FINDINGS: Enlarged precarinal lymph nodes measuring 2.3 x 1.0 cm. There is mild fullness of the right hilum. Álvaro rderline enlarged right hilar lymph node measuring 1.0 x 0.8 cm. Heart size is normal. No significan t pericardial fluid. The thoracic aorta and upper abdominal aorta have a normal caliber. No periaorti c fat stranding. Reflux of contrast into the inferior vena cava suggesting right heart failure. The visualized upper solid abdominal viscera is unremarkable. Trachea and central bronchi are patent. There are diffuse bilateral ground glass opacities which may be due to edema. No suspicious masses or consolidation with air bronchograms. No pleural effusion or pneumothorax. There are no lytic or blastic lesions in the osseous structures. Adequate contrast opacification of t he pulmonary arterial system to the level of the segmental arteries. No filling defect to suggest thr omboembolism. IMPRESSION: 1. No evidence of pulmonary artery embolism to the level of the segmental arteries. 2. Enlarged mediastinal and hilar lymphadenopathy which is presumed to be reactive. 3. Mosaic ground glass opacification of the lung parenchyma which may be due to edema or infiltr ate. Continued surveillance is recommended. POS: [facility]
[2018-12-07 05:35] LABS: #Eosinphils 0.2 thou/uL (0.0-0.7); #Lymphocytes 1.7 thou/uL (1.20-3.40); #Monocytes 0.7 thou/uL (0.11-0.59); #Neutrophils 4.1 thou/uL (1.40-6.50); %Basophils 0.6 % (0.0-1.0); %Eosinophils 2.5 % (0.0-10.0); %Lymphocytes 25.5 % (21.0-51.0); %Monocytes 9.8 % (0.0-10.0); %Neutrophils 61.6 % (42.0-75.0); Hemoglobin 10.8 g/dL (12.0-16.0); Mean Corpuscular HGB CONC 34.2 g/dL (32.0-36.0); Mean Corpuscular Hemoglobin 28.1 pg (27.0-31.0); Mean Corpuscular Volume 82.2 fL (78.0-98.0); Mean Platelet Volume 8.3 fL (7.4-10.4); Platelet Count 332 thou/uL (130-400); RBC Distribution Width 12.9 % (11.5-14.5); Red Blood Cell (RBC) Count 3.85 mill/uL (4.20-5.40); White Blood Cell (WBC) Count 6.6 thou/uL (4.8-10.8)
[2018-12-07 06:02] LABS: Anion Gap 13 mmol/L (10-20); BUN (Urea Nitrogen) 13 mg/dL (7.0-18.7); Calc. Creatinine Clearance 95 mL/min (70-130); Carbon Dioxide 29 mmol/L (22-29); Chloride 100 mmol/L (98-107); Estimated GFR-MDRD 74; Glucose 125 mg/dL (70-105); Sodium 139 mmol/L (136-145)
[2018-12-07] MEDS: Furosemide 40 MG/4 ML VIAL SLOW IVP SCH ×2 (06:07→14:21)
[2018-12-07] MEDS ORDERED: Potassium Chloride 20 MEQ TAB PO SCH (08:00)
[2018-12-07 10:20] LABS: Vancomycin, Trough 10.5 ug/mL
[2018-12-07] MEDS: Aspirin 81 mg Enteric Coated Tablet PO SCH (10:35)
[2018-12-07] MEDS: Hydrochlorothiazide 25 MG TAB PO SCH (10:35)
[2018-12-07] MEDS: cloNIDine 0.3 MG TAB PO SCH ×2 (10:35→14:56)
[2018-12-07] MEDS: Metoprolol Tartrate 100 MG TAB PO SCH (10:36)
[2018-12-07] MEDS: Clopidogrel Bisulfate 75 MG TAB PO SCH (10:36)
[2018-12-07] MEDS: Enoxaparin Sodium 40 MG/0.4 ML SYRINGE SC SCH (10:36)
[2018-12-07] MEDS: Acetaminophen/Codeine 30-300mg Tablet PO SCH (10:36)
[2018-12-07] MEDS: Insulin Glargine 40 UNITS in Pre-Filled Syringe 1 EACH SC SCH (10:36)
[2018-12-07] MEDS: Pregabalin 75 MG CAP PO SCH (10:37)
[2018-12-07] MEDS: Cefepime 1 GM in Sodium Chloride 0.9% 100 ML IVPB SCH (10:38)
--- NOTE | 2018-12-07 11:14 | CON ---
DATE OF CONSULTATION: 12/07/2018 CONSULTING PHYSICIAN: Burak Jackson MD REASON FOR CONSULTATION: Abnormal x-ray. HISTORY OF PRESENT ILLNESS: Ms. Walter is a 48-year-old female, who was admitted to this facility several days ago with shortness of breath. Of note, she had been discharged several days earlier after coming with a hypertensive emergency. On this particular admission, she had a temperature at home of 102. Of note, nothing has been reported in the hospital higher than 99.6. She had used cocaine at a green party the night before admission. She had ingested the cocaine orally. PAST MEDICAL HISTORY: 1. Hypertension. 2. Diabetes mellitus. 3. Coronary artery disease. 4. Multiple sclerosis. 5. Hypertensive emergency. PAST SURGICAL HISTORY: 1. x2. 2. Coronary artery stent placement. SOCIAL HISTORY: Occasionally smokes marijuana. She says she has not smoked cigarettes. She has been known to snort cocaine, but says she has not been using that regularly. MEDICATIONS: Prior to admission; 1. Plavix. 2. Coreg. 3. Clonidine. 4. Aspirin. 5. Lantus insulin. 6. Tylenol. REVIEW OF SYSTEMS: Twelve-point review of systems is otherwise negative. PHYSICAL EXAMINATION: VITAL SIGNS: Temperature 98.4, pulse 69, blood pressure 181/86, and O2 saturation 97% on room air. GENERAL: She is awake and alert, in no distress. HEENT: Unremarkable. NECK: No adenopathy or JVD. LUNGS: Clear to auscultation without wheezing or rhonchi. CARDIAC: Regular without murmur. ABDOMEN: Soft, nontender, and nondistended. EXTREMITIES: No clubbing, cyanosis, or edema. DIAGNOSTIC DATA: I have reviewed her CT and chest x-ray, which shows a butterfly mosaic pattern of pulmonary edema. White blood cell count 6.6, hematocrit 31.7, and platelet count 332. Sodium 139, potassium 3, chloride 100, CO2 of 29, BUN 13, creatinine 0.9, and glucose 125. EKG shows voltage criteria for left ventricular hypertrophy. Echocardiogram shows EF of 55% to 60% with concentric LVH, mild regurgitation, and a dilated left atrium. ASSESSMENT: I think the physical exam findings and CT and chest x-ray are more compatible with pulmonary edema than anything else. I am not sure what to make of the fever, although ingestion of cocaine could cause fever. RECOMMENDATIONS: I would finish out 7 days of whatever antibiotic she like. I have told the patient she can no longer use cocaine. Her blood pressure needs to be adequately controlled. She needs to follow up with her primary care doctor. Job ID: [id number]
[2018-12-07] MEDS: Vancomycin HCl 1 GM in Premix Bag 1 BAG IVPB SCH (12:32)
[2018-12-07] MEDS: HumaLOG 300 UNITS/3 ML VIAL SC PRN (13:14)
[2018-12-07 14:49] VITALS: BP 136/86; TEMP 97.4
--- NOTE | 2018-12-08 05:00 | DIS ---
DATE OF ADMISSION: 12/05/2018 DATE OF DISCHARGE: 12/07/2018 DISCHARGE DIAGNOSES: 1. Pneumonitis. 2. Possible pneumonia. 3. Probable congestive heart failure with pulmonary edema. 4. History of cocaine abuse. 5. Left ventricular hypertrophy, severe, concentric. 6. Uncontrolled hypertension and uncontrolled diabetes. HISTORY OF PRESENT ILLNESS: This patient is a 48-year-old female, who presented to this facility on 11/23 with cocaine abuse and hypertensive urgency. She was subsequently discharged and presented back to [place] on the day of admission with a complaint of cough and shortness of breath. She was told that she had pneumonia and should be admitted to the hospital. However, she said she had a job interview, so she left [facility] and after the job interview, she presented to this facility. She admitted with some orthopnea and reported some mild peripheral edema as well. She also reported a fever of 102.5 prior to presenting as well. HOSPITAL COURSE: The patient had a chest x-ray in the emergency room that showed bilateral pulmonary infiltrates, which were fairly diffuse. She had some pulmonary rales on exam on the right only, which is where the infiltrates were somewhat more severe. She was started on broad-spectrum antibiotics with vancomycin and cefepime given her recent hospitalization and she was started on diuresis as well. The diuresis continued along with antibiotics and the patient was feeling subjectively better. She had consultation with Pulmonology when her subsequent chest x-ray had not improved substantially. She also had a CT angiogram performed, which showed no evidence of pulmonary edema. There was some enlarged mediastinal and hilar lymphadenopathy presumed to be reactive and some mosaic ground-glass opacifications of the lung parenchyma due to edema or infiltrate. Pulmonology felt the patient more likely had some pulmonary edema from congestive heart failure, but could not rule out underlying pneumonia and recommended completion of course of antibiotics as well. PHYSICAL EXAMINATION: VITAL SIGNS: On the day of discharge, temperature 97.4, pulse 64, respirations 18, O2 saturations 98% on room air, and BP 136/86. GENERAL APPEARANCE: Age-appropriate female, no distress. Awake and alert. HEART: Regular rate and rhythm. LUNGS: Revealed very minimal right basilar rales, otherwise had substantially cleared. ABDOMEN: Soft, nontender, and nondistended. Positive bowel sounds. No masses. No organomegaly. EXTREMITIES: No cyanosis, clubbing, or edema. DISPOSITION: The patient is discharged to home. ACTIVITY: As tolerated. DIET: She will stay on a heart healthy, diabetic, low-sodium diet. DISCHARGE MEDICATIONS: She will be on, 1. Levaquin 500 mg daily. 2. Aspirin 81 mg daily. 3. Plavix 75 mg daily. 4. Pantoprazole 40 mg daily. 5. Lantus 40 units subcu b.i.d. 6. Pregabalin 150 mg b.i.d. 7. Metoprolol 100 mg b.i.d. 8. Clonidine 0.3 b.i.d. 9. Tylenol No.3 b.i.d. p.r.n. 10. Hydrochlorothiazide 25 daily. 11. Reglan 10 mg t.i.d. p.r.n. FOLLOWUP: She is to follow up with her PCP. She should also follow up with Dr. Ríos in the clinic and she can return to the hospital should she have any problems prior to that time. Time spent in discharge activities was 35 minutes. Job ID: [id number]
--- NOTE | 2018-12-08 06:39 | PQF ---
[employer] Crystal Reports [employer] JOSÉ LUIS Dong AKHIL BRAY MD [id number] [id number] CLINICAL DOCUMENTATION CLARIFICATION FORM: POST DISCHARGE Addendum to original discharge summary date: ____ Late entry note date: __ DATE: 12/08/2018 ATTN:AKHIL BRAY MD Please exercise your independent, professional judgment in responding to the clarification form. Clinical indicators are provided on the bottom of this form for your review Please check appropriate box(s): HEART FAILURE: Suspected ACUITY [ x ] Acute [ ] Acute on Chronic [ ] Chronic [ ] Other diagnosis [ ] Unable to determine For continuity of documentation, please document condition throughout progress notes and discharge summary. Thank You. CLINICAL INDICATORS - SIGNS / SYMPTOMS / LABS - Some pulmonary edema from congestive heart failure-DS, 12/07, AKHIL BRAY MD - Left ventricular hypertrophy, severe concentric-DS, 12/07, AKHIL BRAY MD - Some mild peripheral edema-DS, 12/07, AKHIL BRAY MD - BNP: 426.1 H- Laboratory, 12/05 - Reports SOB- ED record, 12/05, Ovidio Cabrera MD - evidence of CHF is her known history of some diastolic dysfunction on echo-H&P , 12/07, Manuel Sumner MD RISKS: - Uncontrolled hypertension-DS, 12/07, AKHIL BRAY MD - Pneumonitis-DS, 12/07, AKHIL BRAY MD - Nstemi type2 sec to the hypertensive urgency on 11/25- H&P, 12/06, Manuel Sumner MD TREATMENTS: -Echocardiogram -Furosemide.IV-MAR, 12/05 (This form is maintained as a part of the permanent medical record) [address] All Rights Reserved Neisha Hernandez [not provided] [not provided] MTDD
== END 2018-12-07 15:05 | disposition home or self-care (01) | DRG 280 ==
LOC: ERS 15:42 → 2SW 18:45 → OBSVTOIN 18:45 → 2NO 12-06 19:58
PROVIDERS: ADMIT Internal Medicine; ATTEND Internal Medicine
DX: I11.0 Hypertensive heart disease with heart failure (principal); J18.9 Pneumonia, unspecified organism; I21.A1 Myocardial infarction type 2; I50.31 Acute diastolic (congestive) heart failure; F17.210 Nicotine dependence, cigarettes, uncomplicated; F12.10 Cannabis abuse, uncomplicated; D72.829 Elevated white blood cell count, unspecified; F14.10 Cocaine abuse, uncomplicated; I16.0 Hypertensive urgency; I50.9 Heart failure, unspecified; I25.10 Atherosclerotic heart disease of native coronary artery without angina pectoris; I05.0 Rheumatic mitral stenosis; F19.10 Other psychoactive substance abuse, uncomplicated; E11.65 Type 2 diabetes mellitus with hyperglycemia; I27.20 Pulmonary hypertension, unspecified; Z95.5 Presence of coronary angioplasty implant and graft
CPT/HCPCS: 36415; 36416; 71045; 71275; 80048; 80053; 80202; 81001; 82553; 83605; 83690; 83880; 84484; 84703; 85025; 87040; 93005; 93306; 96374; J0360; J0692; J1650; J1815; J1940; J2405; J3370; J3490; J8597; Q0162; Q9966